=== PATIENT | female | born 1940 | race Caucasian/White ===

== ENCOUNTER 2017-06-25 08:55 | Day surgery (SDC) | payer MEDICARE, OTHER, SELFPAY ==
[2017-06-25] VITALS (8 sets, daily range): BP systolic 127–146; BP diastolic 67–83; PULSE 76–89; RESP 16–18; TEMP 36.3–37.4; O2SAT 92–98; BMI 40.7
[2017-06-25] MEDS: Cefazolin 2 GM in 0.9% Normal Saline 100 ML IV (10:32)
--- NOTE | 2017-06-25 11:45 | PCM.IMDPSTOP ---
Immediate Post-Op Note Date of Procedure: 06/25/17 Primary Surgeon/Physician: Tabby Trevino dynamite shooter: NOT,DEFINED Pre-Operative Diagnosis: multiple myeloma, need for IV access for chemotherapy Post-Operative Diagnosis: same Surgery/Procedure Performed:: placement of permanent tunnelled catheter in the right subclavian vein with subcutaneous port Description of Surgical Findings:: could not advance wire in either left IJ or left subclavian vein Estimated Blood Loss: < 10 ml Specimen's removed: none Type of Anesthesia:: General ASA Class: ASA3 Severe Disease - Admit VTE Documentation VTE Present on Admission: Yes VTE Mechan Device Prophylaxis: SCD's
--- NOTE | 2017-06-25 11:49 | OP.PN_ITS ---
Immediate Post-Op Note Date of Procedure: 06/25/17 Primary Surgeon/Physician: Tabby Trevino compensator worker: NOT,DEFINED Pre-Operative Diagnosis: multiple myeloma, need for IV access for chemotherapy Post-Operative Diagnosis: same Surgery/Procedure Performed:: placement of permanent tunnelled catheter in the right subclavian vein with subcutaneous port Description of Surgical Findings:: could not advance wire in either left IJ or left subclavian vein Estimated Blood Loss: < 10 ml Specimen's removed: none Type of Anesthesia:: General ASA Class: ASA3 Severe Disease - Admit VTE Documentation VTE Present on Admission: Yes VTE Mechan Device Prophylaxis: SCD's
--- NOTE | 2017-06-25 11:49 | OP.PCM_ITS ---
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 She was then given IV conscious sedation for anesthesia. The patient?s upper chest and neck were then prepped with a surgical skin preparation and sterile surgical drapes were placed. After proper landmarks were ascertained, the skin at the upper left chest area was then infiltrated with local anesthetic. The patient was placed in the Trendelenberg position. A needle trocar was then inserted into the left subclavian vein and there was good aspiration of venous blood. A wire was then threaded into the needle trocar. However, it could not be advanced. This was visualized under fluoroscopy and it appeared that there was an obstruction not allowing the wire to advance. The needle trocar was then reinserted into the left subclavian vein. There was good aspiration of venous blood. The wire was then threaded into the trocar and once again, under visualization by fluoroscopy the wire could not be advanced beyond a certain point in the subclavian vein. Therefore, attempts to access the left internal jugular vein was done. The ultrasound device was used to identify the location of the IJ. Once this was done, the skin and subcutaneous tissue were infiltrated with local anesthetic. The needle trocar was then directed into the left IJ as noted via the US transducer. There was good aspiration of venous blood. The wire was then inserted into the needle and then noted via fluoroscopy to be in the left internal jugular vein. However, it could not be advanced into the innominate vein, there seemed to be an obstruction. Thus accessing the left sided veins was aborted. Pressure was applied to both sites. The right side was therefore approached next. A needle trocar was then inserted into the right subclavian vein and there was good aspiration of venous blood. A wire was then threaded into the needle trocar and this was visualized under fluoroscopy to ensure that the wire was in the right subclavian vein. It was noted to advance in the SVC. Once this was done, then the needle trocar was removed. A small skin najma was made with an 11 blade knife at the wire entrance site. The dilator with the introducer sheath attached was then placed over the wire into the right subclavian vein via the Seldinger technique and this was visualized under fluoroscopy. The dilator and sheath were in proper position as visualized by fluoroscopy. The wire and dilator were then removed. The catheter was then threaded into the introducer sheath and was positioned with its tip at the junction of the superior vena cava and the right atrium as visualized under fluoroscopy. The catheter was flushed with a heparin saline mixture prior to placement. A subcutaneous pocket was then created caudad to the catheter insertion site. A transverse skin incision was made after the skin and subcutaneous tissues were infiltrated with local anesthetic. Blunt dissection was then used to create a space large enough for placement of the subcutaneous port. Hemostasis was carefully controlled with electrocautery. The port was sutured to the subcutaneous fascia using vicryl suture at three sites. The catheter was then tunneled into the subcutaneous pocket. The excess catheter was transected. The catheter was then attached to the subcutaneous port using electronics instructor?s guidelines. The port was then placed in the subcutaneous pocket and the sutures were ligated. The subdermal incisional sites were reapproximated with interrupted vicryl suture. The skin was reapproximated with monocryl suture in a subcuticular fashion. Cavilon and steristrips were used for reinforcement of the skin closure and a sterile opsite dressing was applied. The patient tolerated the procedure well. Grafts/Implants Used: Lot [id number] [employer] PowerPort - Complications none noted - Admit VTE Documentation VTE Present on Admission: Yes VTE Mechan Device Prophylaxis: SCD's
--- NOTE | 2017-06-25 11:49 | RAD_ITS ---
STUDY: X-RAY CHEST REASON FOR EXAM: Female, 76 years old. Port placement. TECHNIQUE: Single AP portable view of the chest. COMPARISON: Comparison is made with prior study dated October 16, 2013. FINDINGS: A right-sided portacatheter is in place. The tip is at the junction of the superior vena cava and right atrium. EKG electrodes are seen. The lungs are clear and expanded. There is no demonstrated pleural abnormality. There is moderate cardiac enlargement. Normal mediastinum and neri. Normal visualized pulmonary arteries. There is atherosclerotic calcification of the aortic arch with tortuosity. There are diffuse degenerative changes of the visualized thoracic spine. Marked degenerative changes of the left glenohumeral joint. There is no demonstrated abnormality of the visualized soft tissue structures of the upper abdomen. RAD/CXR for Line Placement IMPRESSION: A right-sided jono catheter has been placed. The tip is at the junction of the superior vena cava and right atrium. Electronically Signed: Bakari Paniagua MD at 12:31 EST Tel [phone], Service support ,
--- NOTE | 2017-06-25 11:55 | PCM.DC.POR ---
Discharge Diet: No Restrictions Discharge Activity: Return to Normal Activity, May not drive while taking narcotic pain medications. Call your doctor if your incision/area has: Continuous Slow Oozing, Foul Smelling Discharge Additional Dressing/Incision Instructions:: Leave dressings in place. May get wet in shower. Do not soak - no tub baths/swimming Allergies/Adverse Reactions: Allergies diazepam [From Valium] Allergy (Verified 06/25/17 09:35) DELIRIUM lorazepam [From Ativan] Allergy (Verified 06/25/17 09:34) DELIRIUM SERAQUEL Allergy (Uncoded 06/25/17 09:35) DELIRIUM Medications to take at Discharge Acetaminophen [Tylenol] 650 mg PO Q4H PRN PRN 06/22/17 Acyclovir [Zovirax] 400 mg PO BID 06/22/17 Famotidine [Pepcid] 20 mg PO BID 06/22/17 Gabapentin [Neurontin] 300 mg PO QHS 06/22/17 Ondansetron [Zofran Odt] 8 mg PO Q8H PRN PRN 06/22/17 Oxycodone [Oxyir] 5 - 10 mg PO Q4H PRN PRN 06/22/17 Polyethylene Glycol 3350 [Miralax] 17 gm PO DAILY 06/22/17 Sennosides/Docusate Sodium [Senna Plus Tablet] 1 each PO BID 06/22/17 Oxycodone [Oxyir] 5 mg PO Q6H PRN PRN #10 tab 06/25/17 The following prescriptions were given: Oxycodone [Oxyir] 5 mg PO Q6H PRN PRN #10 tab PRN Reason: Mod-Severe Pain (-03/09) Primary Care Physician: Fredrick Vaughan MD [Primary Care Provider] - Please Follow Up With: Tabby Trevino MD - call When: to be seen in 1-2 weeks, please call for time and day, thank you
--- NOTE | 2017-06-25 12:45 | NURSING ---
applied o2 at 3l/nc
[2017-06-25] MEDS: oxyCODONE 5 MG Tablet PO (14:00)
== END 2017-06-25 14:38 | disposition home or self-care (01) ==
LOC: SDC 08:56 → AC 08:58
PROVIDERS: Family Provider Family Medicine; PCP Family Medicine; Visit Provider Surgery
PROC: (CPT 36571; principal; 2017-06-25 10:15)
DX: C90.00 Multiple myeloma not having achieved remission (principal); C90.10 Plasma cell leukemia not having achieved remission; Z45.2 Encounter for adjustment and management of vascular access device; Z87.891 Personal history of nicotine dependence; Z79.899 Other long term (current) drug therapy; M19.90 Unspecified osteoarthritis, unspecified site; I49.9 Cardiac arrhythmia, unspecified; E66.01 Morbid (severe) obesity due to excess calories; Z68.41 Body mass index [BMI] 40.0-44.9, adult; Z82.49 Family history of ischemic heart disease and other diseases of the circulatory system; Z80.3 Family history of malignant neoplasm of breast
CPT/HCPCS: 00532; 36571; 71045; 77001; J7120; C1788; J2405

== ENCOUNTER → 2017-07-09 11:05 | Outpatient (CLI) | payer MEDICARE, OTHER, SELFPAY ==
[2017-05-23 17:00] VITALS: BP 144/77
[2017-06-25 09:31] VITALS: BMI 40.7
[2017-06-25 13:09] VITALS: BP 137/83
--- NOTE | 2017-07-09 11:35 | ECHOD_ITS ---
Reason For Study: High risk meds, Hx of strep infection; r/o endocarditis Procedure This was a 2D Doppler, Color Flow transthoracic echocardiogram. Patient scanned upright due to back pain and inability to lay flat. The study was technically difficult. Exam performed in department. Left Ventricle Based upon the 2D echocardiograhic images obtained there appears to be grossly normal left ventricular size, wall motion, and systolic function. The estimated ejection fraction is 60 %. No evidence for diastolic dysfunction. Right Ventricle Normal RV size. Normal systolic function. Atria Normal left atrium. Normal right atrium. No doppler evidence for ASD. Mitral Valve There is no mitral annular calcification. Normal mitral valve. Mild (1+) mitral valve insufficiency. Tricuspid Valve Normal tricuspid valve. Trivial tricuspid valve insufficiency. Unable to estimate RV systolic pressure/pulmonary artery pressure due to technically difficult study. Aortic Valve Trisinus/trileaflet aortic valve. Mild diffuse aortic valve thickening. Mild focal aortic valve calcification. Pulmonic Valve The pulmonic valve is not well visualized. Great Vessels Normal sized aortic root. Pericardium/Pleural No pericardial effusion. MMode/2D Measurements & Calculations LVIDd: 3.7 cm IVSd: 1.3 cm Ao root diam: 3.6 cm LVIDs: 2.2 cm LVPWd: 1.1 cm LA dimension: 2.9 cm FS: 40.4 % LAV(MOD-bp): 33.1 ml LA A4 area: 14.5 cm2 RA A4 area: 10.5 cm2 LAV(MOD-bp) Indexed: 15.8 ml/m2 LAV(MOD-sp2): 31.9 ml LAV(MOD-sp4): 33.1 ml Doppler Measurements & Calculations MV E max david: 53.7 cm/sec Lat Peak E' David: 7.0 cm/sec Med Peak E' David: 4.4 cm/sec MV A max david: 86.9 cm/sec E/E' lat: 7.7 E/E' med: 12.2 MV E/A: 0.62 Ao V2 max: 177.6 cm/sec LV V1 max: 111.0 cm/sec PA V2 max: 75.7 cm/sec Ao max P.6 mmHg LV V1 max P.0 mmHg Ao V2 mean: 130.0 cm/sec LV V1 mean P.7 mmHg Ao mean P.4 mmHg LV V1 mean: 78.0 cm/sec Ao V2 VTI: 31.6 cm LV V1 VTI: 19.8 cm Interpretation Summary The study was technically difficult. Based upon the 2D echocardiograhic images obtained there appears to be grossly normal left ventricular size, wall motion, and systolic function. The estimated ejection fraction is 60 %. Mild (1+) mitral valve insufficiency. Trivial tricuspid valve insufficiency. Mild diffuse aortic valve thickening. Mild focal aortic valve calcification. Unable to estimate RV systolic pressure/pulmonary artery pressure due to technically difficult study. No evidence for diastolic dysfunction. Ordering Physician: Gio Minor Referring Physician: DOCTOR, OUT OF TOWN Performed By: Jessica Vieyra, YESSICA, RVT
== END ==
DX: C90.10 Plasma cell leukemia not having achieved remission (principal); D64.9 Anemia, unspecified; G62.9 Polyneuropathy, unspecified; M19.90 Unspecified osteoarthritis, unspecified site; E87.1 Hypo-osmolality and hyponatremia
CPT/HCPCS: 93306

== ENCOUNTER → 2017-08-10 09:30 | Outpatient (CLI) | payer MEDICARE, OTHER, SELFPAY ==
[2017-08-10] VITALS (7 sets, daily range): BP systolic 107–142; BP diastolic 62–82; PULSE 61–83; RESP 16–20; TEMP 35.7–36.9; O2SAT 96–100; BMI 41.0
== END ==
PROVIDERS: Visit Provider Internal Medicine Hematology & Oncology
DX: D61.818 Other pancytopenia (principal)
CPT/HCPCS: 36430; 86850; 86900; 86920; 86922; J7030; P9016; A4216

== ENCOUNTER → 2017-09-22 09:10 | Outpatient (CLI) | payer MEDICARE, OTHER, SELFPAY ==
[2017-09-22] VITALS (7 sets, daily range): BP systolic 103–132; BP diastolic 55–75; PULSE 65–95; RESP 16–18; TEMP 36.2–36.7; O2SAT 92–100; BMI 38.8
== END ==
PROVIDERS: Visit Provider Internal Medicine Hematology & Oncology
DX: Z51.89 Encounter for other specified aftercare (principal)
CPT/HCPCS: 36430; 86850; 86900; 86920; 86922; J7040; P9016; A4216

== ENCOUNTER → 2017-10-13 09:36 | Outpatient (CLI) | payer MEDICARE, OTHER, SELFPAY ==
[2017-10-13] VITALS (7 sets, daily range): BP systolic 116–139; BP diastolic 64–92; PULSE 60–74; RESP 16–18; TEMP 36.2–36.6; O2SAT 95–98; BMI 41.5
== END ==
PROVIDERS: Visit Provider Internal Medicine Hematology & Oncology
DX: Z51.89 Encounter for other specified aftercare (principal)
CPT/HCPCS: 36415; 36430; 36591; 86850; 86900; 86920; 86922; J7040; P9016; A4216

== ENCOUNTER → 2017-11-19 07:55 | Outpatient (CLI) | payer MEDICARE, OTHER, SELFPAY ==
[2017-11-19] VITALS (7 sets, daily range): BP systolic 110–142; BP diastolic 60–78; PULSE 65–86; RESP 16–18; TEMP 36.5–36.6; O2SAT 92–95; BMI 40.7
== END ==
PROVIDERS: Family Provider Family Medicine; PCP Family Medicine; Visit Provider Internal Medicine Hematology & Oncology
DX: D61.818 Other pancytopenia (principal); Z85.79 Personal history of other malignant neoplasms of lymphoid, hematopoietic and related tissues
CPT/HCPCS: 36430; 86850; 86900; 86920; J7040; P9040; A4216

== ENCOUNTER 2017-12-11 09:29 | Outpatient (CLI) | payer MEDICARE, OTHER, SELFPAY ==
[2017-12-11] VITALS (8 sets, daily range): BP systolic 125–145; BP diastolic 58–76; PULSE 64–72; RESP 16–20; TEMP 36.3–37.2; O2SAT 95–98
[2017-12-11] MEDS: 0.9% NaCl VAD Flush 10 ML IV ×2 (15:05→15:19)
== END 2017-12-11 15:31 | disposition home or self-care (01) ==
LOC: MEDOUTP 09:30 → PCU 09:34
PROVIDERS: Family Provider Family Medicine; PCP Family Medicine; Visit Provider Internal Medicine Hematology & Oncology
DX: Z51.89 Encounter for other specified aftercare (principal); D64.9 Anemia, unspecified
CPT/HCPCS: 36430; 86850; 86860; 86870; 86880; 86900; 86902; 86920; 86922; J7040; P9016; A4216

== ENCOUNTER 2018-01-08 09:00 | Outpatient (CLI) | payer MEDICARE, OTHER, SELFPAY ==
[2018-01-08 10:10] VITALS: BP 125/97; PULSE 67; RESP 16; TEMP 36.8; O2SAT 97
[2018-01-08 10:25] VITALS: BP 130/75; PULSE 67; RESP 16; TEMP 36.8; O2SAT 97
[2018-01-08 11:25] VITALS: BP 138/78; PULSE 67; RESP 16; TEMP 36.7; O2SAT 96
[2018-01-08 12:14] VITALS: BP 142/82; PULSE 70; RESP 16; TEMP 36.8; O2SAT 94
[2018-01-08] MEDS: 0.9% NaCl VAD Flush 10 ML IV (12:44)
--- NOTE | 2018-01-08 12:49 | NURSING ---
Right Chest port deaccessed at this time. Flushed with 10cc NS followed by Heparin as ordered. Watson needle removed without complication. Small bruise noted at port site. No active bleeding or hematoma noted. Patient states bruise is not new. 2x2 gauze and tape applied at patient request. Patient tolerated without complaint of discomfort
== END 2018-01-08 12:49 | disposition home or self-care (01) ==
LOC: PCUOUT 09:00 → PCU 09:02
PROVIDERS: Family Provider Family Medicine; PCP Family Medicine; Visit Provider Internal Medicine Hematology & Oncology
DX: D64.81 Anemia due to antineoplastic chemotherapy (principal)
CPT/HCPCS: 36430; 86850; 86870; 86900; 86902; 86920; 86921; 86922; J7040; P9016; A4216

== ENCOUNTER 2018-08-03 10:36 | Emergency (ER) | payer MEDICARE, OTHER, SELFPAY ==
--- NOTE | 2018-08-03 10:50 | RAD_ITS ---
STUDY: X-RAY - LEFT FEMUR REASON FOR STUDY: Proximal femur pain. TECHNIQUE: 2 view(s) of the femur. COMPARISON: Radiographs of the left knee 01/18/2014. FINDINGS: There is an osteolytic lesion in the mid femoral diaphysis measuring approximately 2.4 cm in length. There is a left total knee arthroplasty. Normal visualized soft tissue structure. 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 Electronically Signed: Colten Block MD at 12:46 EST Tel , Service support ,
[2018-08-03 11:13] VITALS: BP 140/75; PULSE 85; RESP 16; TEMP 37.1; O2SAT 97; BMI 46.2
[2018-08-03] MEDS: oxyCODONE 5 MG Tablet PO (12:00)
[2018-08-03 13:00] VITALS: BP 143/77; PULSE 85; RESP 16; O2SAT 96
--- NOTE | 2018-08-03 13:42 | ED.VISSUMM ---
- ER Visit Summary Date of Service: 08/03/18 Chief Complaint: Left thigh pain History of Present Illness: The patient is a 77 F presents to the emergency department left thigh pain. Patient has a history of multiple myeloma. She follows with Dr. Jose and is under active treatment. She has had a history of osteolytic lesions in her shoulder and neck in the past. States over the past 2 days, she has had increasing pain in her left thigh. States it hurts to bear weight. She is been using her walker and is having a difficult time getting around because of her pain. She had x-rays done in the office which were concerning for a distal osteolytic lesion of the femur which was not seen on her x-rays of the hip. She was sent over for further evaluation. Physical Examination: Vital signs reviewed General: Well-nourished, well-developed Head: Normocephalic, atraumatic Eyes: Pupils equal and reactive, extraocular muscles intact Neck, supple, no lymphadenopathy Heart: Regular rate and rhythm Respiratory: No distress, clear bilaterally Abdomen: Soft, nontender, nondistended, no peritoneal signs Back: Nontender Extremities: Nontender, no edema, no cords Skin: Normal color no rash Neuro: Alert and oriented, no focal or lateralizing deficits Test Results: [] Emergency Department Course and Treatment: Patient presents emergency department thigh pain. She was given oral analgesics. I did obtain plain films of the femur. There does appear to be an osteolytic lesion within the femur, but no evidence of fracture. The patient was able to ambulate with control of her pain. I did discuss this with Dr. Jose who would actually refer the patient to the emergency department. He does have a history of osteolytic lesions secondary to multiple myeloma. His pain is controlled, I do feel that she is safe for outpatient follow-up. He is going to schedule her with radiation oncology tomorrow for palliative radiation. Family is comfortable with this plan of care. Treatment Plan: [] Disposition: Discharge Impression: Osteolytic lesion of the left femur This note was generated with [employer] dictation software. It may contain incorrect words, spelling, and punctuation that were not noted in review of the chart prior to signing ED Disposition - Plan for ED Patient: Instructions: ED Cyst Bone Prescriptions: RX: Oxycodone [Oxyir] 5 mg PO Q6H PRN PRN 3 Days #10 tab PRN Reason: Pain Referrals: Abhinav Jose DO [STAFF PHYSICIAN] - 1 Day
[2018-08-03 15:21] VITALS: BP 138/67; PULSE 87; RESP 20; O2SAT 97
== END 2018-08-03 15:22 | disposition home or self-care (01) ==
LOC: ED 12:18
PROVIDERS: Emergency Provider Emergency Medicine
DX: M89.552 Osteolysis, left thigh (principal); C90.00 Multiple myeloma not having achieved remission; E66.9 Obesity, unspecified; Z68.42 Body mass index [BMI] 45.0-49.9, adult; Z79.899 Other long term (current) drug therapy
CPT/HCPCS: 73552; 99283

== ENCOUNTER → 2018-11-14 08:36 | Outpatient (CLI) | payer MEDICARE, OTHER, SELFPAY ==
[2018-11-14] VITALS (7 sets, daily range): BP systolic 118–140; BP diastolic 60–80; PULSE 54–94; RESP 16–18; TEMP 35.9–36.6; O2SAT 93–100; BMI 43.2
== END ==
PROVIDERS: Referring Provider Internal Medicine Hematology & Oncology; Visit Provider Internal Medicine Hematology & Oncology
DX: D64.9 Anemia, unspecified (principal); C90.00 Multiple myeloma not having achieved remission
CPT/HCPCS: 36430; 86850; 86900; 86920; 86922; J7040; P9016; A4216

== ENCOUNTER → 2019-01-03 11:08 | Outpatient (CLI) | payer MEDICARE, OTHER, SELFPAY ==
[2018-11-14 08:49] VITALS: BMI 43.2
[2019-01-03 11:26] VITALS: BP 129/66; PULSE 69; RESP 16; TEMP 36.6; O2SAT 95; BMI 43.2
[2019-01-03 12:05] VITALS: BP 102/59; PULSE 81; RESP 18; TEMP 36; O2SAT 93
[2019-01-03 13:05] VITALS: BP 110/65; PULSE 103; RESP 16; TEMP 37; O2SAT 93
[2019-01-03 13:55] VITALS: BP 112/52; PULSE 83; RESP 16; TEMP 36.1; O2SAT 96
== END ==
PROVIDERS: Referring Provider Internal Medicine Hematology & Oncology; Visit Provider Internal Medicine Hematology & Oncology
DX: Z51.89 Encounter for other specified aftercare (principal); D64.9 Anemia, unspecified
CPT/HCPCS: 36430; 86850; 86870; 86900; 86902; 86920; 86921; J7040; P9016; A4216

== ENCOUNTER 2019-02-11 08:28 | Outpatient (CLI) | payer MEDICARE, OTHER, SELFPAY ==
[2019-01-03 11:26] VITALS: BMI 43.2
[2019-02-11] VITALS (8 sets, daily range): BP systolic 109–140; BP diastolic 56–81; PULSE 57–72; RESP 16–18; TEMP 36.1–36.8; O2SAT 92–97
[2019-02-11] MEDS: Acetaminophen 325 MG Tablet 650 MG PO (09:19)
[2019-02-11] MEDS: 0.9% NaCl VAD Flush IV ×2 (09:19→14:51)
== END 2019-02-11 15:00 | disposition home or self-care (01) ==
LOC: MEDOUTP 08:29 → MS3 08:34
PROVIDERS: Referring Provider Internal Medicine Hematology & Oncology; Visit Provider Internal Medicine Hematology & Oncology
DX: Z51.89 Encounter for other specified aftercare (principal); D64.9 Anemia, unspecified
CPT/HCPCS: 36430; 86850; 86900; 86901; 86902; J7040; P9016; A4216

== ENCOUNTER → 2019-03-14 09:32 | Outpatient (CLI) | payer MEDICARE, OTHER, SELFPAY ==
[2019-01-03 11:26] VITALS: BMI 43.2
[2019-03-14] VITALS (7 sets, daily range): BP systolic 113–143; BP diastolic 61–88; PULSE 70–81; RESP 16–18; TEMP 35.9–36.4; O2SAT 94–97; BMI 41.8
== END ==
PROVIDERS: Referring Provider Internal Medicine Hematology & Oncology; Visit Provider Internal Medicine Hematology & Oncology
DX: Z51.89 Encounter for other specified aftercare (principal); D64.9 Anemia, unspecified; C90.00 Multiple myeloma not having achieved remission
CPT/HCPCS: 36430; 86644; 86850; 86900; 86901; 86920; 86922; J7040; P9040; A4216

== ENCOUNTER → 2019-04-05 15:23 | Outpatient (CLI) | payer MEDICARE, OTHER, SELFPAY ==
[2019-03-14 09:39] VITALS: BMI 41.8
== END ==
PROVIDERS: Visit Provider Internal Medicine Hematology & Oncology
DX: R69 Illness, unspecified (principal)
CPT/HCPCS: 86850; 86900; 86901; 86920; 86922

== ENCOUNTER → 2019-04-07 08:16 | Outpatient (CLI) | payer MEDICARE, OTHER, SELFPAY ==
[2019-03-14 09:39] VITALS: BMI 41.8
[2019-04-07] VITALS (8 sets, daily range): BP systolic 120–143; BP diastolic 65–77; PULSE 66–75; RESP 16–18; TEMP 35.9–36.6; O2SAT 95–100; BMI 41.8
== END ==
PROVIDERS: Referring Provider Internal Medicine Hematology & Oncology; Visit Provider Internal Medicine Hematology & Oncology
DX: D64.9 Anemia, unspecified (principal)
CPT/HCPCS: 36430; 86850; 86900; 86901; 86920; 86922; J7040; P9016; A4216

== ENCOUNTER → 2019-06-01 11:40 | Outpatient (CLI) | payer MEDICARE, OTHER, SELFPAY ==
[2019-04-07 08:25] VITALS: BMI 41.8
[2019-06-01] VITALS (7 sets, daily range): BP systolic 114–152; BP diastolic 64–86; PULSE 66–79; RESP 16; TEMP 36.1–36.4; O2SAT 93–98; BMI 41.5
== END ==
PROVIDERS: Referring Provider Internal Medicine Hematology & Oncology; Visit Provider Internal Medicine Hematology & Oncology
DX: Z51.89 Encounter for other specified aftercare (principal); D61.810 Antineoplastic chemotherapy induced pancytopenia; D64.9 Anemia, unspecified; C90.00 Multiple myeloma not having achieved remission
CPT/HCPCS: 36430; 86850; 86900; 86901; 86902; 86920; 86922; J7040; P9040; A4216

== ENCOUNTER 2020-07-24 07:59 | Outpatient (CLI) | payer MEDICARE, OTHER, SELFPAY ==
[2019-06-01 12:07] VITALS: BMI 41.5
[2020-07-24] VITALS (7 sets, daily range): BP systolic 98–131; BP diastolic 50–65; PULSE 60–85; RESP 16; TEMP 36.5–37.2; O2SAT 95–98; BMI 41.5
[2020-07-24] MEDS: 0.9% NaCl VAD Flush IV ×2 (08:25→13:32)
[2020-07-24] MEDS: Furosemide 20 MG/2 ML VIAL IV (10:43)
== END 2020-07-24 16:34 | disposition home or self-care (01) ==
LOC: MEDOUTP 08:00
PROVIDERS: Referring Provider Internal Medicine Hematology & Oncology; Visit Provider Internal Medicine Hematology & Oncology
DX: C90.00 Multiple myeloma not having achieved remission (principal)
CPT/HCPCS: 36430; 86850; 86900; 86901; 86902; 86920; 86922; J7040; P9016; A4216; J1940

== ENCOUNTER 2020-08-21 08:41 | Outpatient (CLI) | payer MEDICARE, OTHER, SELFPAY ==
[2020-07-24 08:09] VITALS: BMI 41.5
[2020-08-21] MEDS: 0.9% NaCl VAD Flush IV ×2 (08:56→11:39)
[2020-08-21 09:05] VITALS: BP 146/84; PULSE 71; RESP 18; TEMP 36.5; O2SAT 98
[2020-08-21 09:12] VITALS: BMI 41.5
[2020-08-21 09:25] VITALS: BP 147/77; PULSE 71; RESP 18; TEMP 36.5; O2SAT 95
[2020-08-21 11:14] VITALS: BP 148/76; PULSE 59; RESP 18; TEMP 36.2; O2SAT 97
== END 2020-08-21 14:00 | disposition home or self-care (01) ==
LOC: MEDOUTP 08:41
PROVIDERS: Referring Provider Internal Medicine Hematology & Oncology; Visit Provider Internal Medicine Hematology & Oncology
DX: D64.81 Anemia due to antineoplastic chemotherapy (principal)
CPT/HCPCS: 36430; 86850; 86900; 86901; 86920; 86921; 86922; J7040; P9016; A4216

== ENCOUNTER 2020-08-23 10:17 | Emergency (ER) | payer MEDICARE, OTHER, SELFPAY ==
[2020-08-23 10:19] VITALS: BP 186/103; PULSE 86; RESP 24; TEMP 36.6; O2SAT 94; BMI 40.1
--- NOTE | 2020-08-23 10:42 | EKG12_ITS ---
Test Reason : SOB Blood Pressure : / mmHG Vent. Rate : 071 BPM Atrial Rate : 071 BPM P-R Int : 178 ms QRS Dur : 106 ms QT Int : 416 ms P-R-T Axes : 000 -39 -18 degrees QTc Int : 452 ms Normal sinus rhythm Left axis deviation Moderate voltage criteria for LVH, may be normal variant Abnormal ECG Confirmed by KISHORE REGAN, EMY ([id number]), film or videotape editor HIPOLITO NUÑEZ ([id number]) on 08/26/2020 1:47:03 PM Referred By: SHANDRA Confirmed By:EMY NOVAK MD
--- NOTE | 2020-08-23 10:45 | ED.VISSUMM ---
- ER Visit Summary Date of Service: 08/23/20 Chief Complaint: Shortness of breath History of Present Illness: The patient is a [address] Darrin Coombs and Dr. Jose. She reports that she has shortness of breath began 2 days ago. Severe when she walks around. It is mild at rest. She denies any chest pain. No fever, chills, or cough. Patient reports that she is short of breath when she lays flat, but this has been a longstanding problem and is unchanged. She reports that she sleeps in a recliner. Patient has a history of multiple myeloma and got 1 unit of packed red blood cells 2 days ago. She states it seems things have actually worsened since then. She takes 40 mg grams of Lasix 1 day and alternates this with 20 mg of Lasix a day. She took 40 mg of Lasix 1 hour ago. Patient denies any cardiac history. She does report she got an echo approximately 3 months ago that shows a calcified aortic aortic valve and has an appointment to see a mechanical maintenance instructor at [facility] in October. Denies any personal family history of coronary artery disease. No personal family history of DVT. No calf pain. Physical Examination: Vitals: Stable. Afebrile. General: Well-nourished and well-developed. Head: Normocephalic atraumatic. Neck: Supple, no lymphadenopathy. No JVD. Nontender. Cardiovascular: Regular rate and rhythm. 3 out of 6 systolic murmur consistent with aortic stenosis. Respiratory: No respiratory distress. Minimal crackles at the right base only, clear to auscultation otherwise. Abdominal: Soft, nontender, nondistended, normal bowel sounds. No guarding, rebound, or peritoneal signs. Back: Nontender. Extremities: Nontender, 3+ pitting edema lower extremities bilaterally. Skin: Normal color, no rash. Neurologic: Alert and oriented ?3. Cranial nerves II through XII are intact. Normal strength and sensation. Psych: Normal affect. Test Results: KG is sinus at 71 and unchanged from 2017. Troponin is negative. BNP is 518. There is no old for comparison. Urinalysis is negative. Chem-7 shows a BUN of 36. CBC shows an H&H of 8.9 and 27.8, platelets 134, stable neutrophils 83, monocytes of 11, lymphocytes of 5. Clinical Impression(s) from Imaging Studies Chest X-Ray 08/23/20 11:18 IMPRESSION: Mild degree of vascular congestion. Electronically Signed: Bakari Paniagua MD at 11:48 EDT , Service support , Emergency Department Course and Treatment: Patient had an IV placed. She is been able to ambulate to the bathroom without any difficulty. She is resting comfortably. She feels well and would like to go home. Treatment Plan: Patient took 40 mg of Lasix p.o. just prior to coming emergency department. She is urinated multiple times while here. She will be discharged instructions to take another 40 mg this afternoon. Then increase her daily dose from alternating between 20 and 40 every other day to 40 mg a day for the next 4 days until she sees Dr. Jose. Return to the emergency department for any worsening symptoms. Disposition: To home in improved and stable condition. Impression: 1. Volume overload. 2. Anemia. 3. Thrombocytopenia. 4. History of multiple myeloma. This note was generated with [employer] dictation software. It may contain incorrect words, spelling, and punctuation that were not noted in review of the chart prior to signing ED Disposition - Plan for ED Patient: Instructions: ED Heart Failure, Congestive (CHF) Referrals: Abhinav Jose DO [STAFF PHYSICIAN] - Keep Ricky appointment Additional Instructions: Take an extra 40 mg of Lasix at 3:00 this afternoon. Then increase your daily dose of Lasix to 40 mg each day until you see Dr. Jose.
[2020-08-23 11:02] LABS: Bacteria 0 SEEN /hpf (None Seen); Mucous, Urine 0 SEEN /hpf (<or=2+); Red Blood Cells-Urine 0 SEEN /hpf (0-5)
[2020-08-23 11:03] LABS: Color, Urine Straw (Yellow); Glucose, Dipstick Normal (Normal); Ketone-Dipstick Negative (Negative); Leukocyte Esterase-Dipstick 25 /ul (Negative); Nitrite-Dipstick Negative (Negative); Occult Blood-Urine Negative /ul (Negative); Protein-Dipstick 15 mg/dl (Negative); Specific Gravity, Urine 1.005 (1.002-1.030); Urine Bilirubin Dipstick Negative (Negative); Urine Clarity Sl. Cloudy (Clear); Urine Urobilinogen Normal (Normal)
[2020-08-23 11:09] LABS: Squamous Epithelial Cells - UA 0-5 SEEN /hpf (5-10); White Blood Cells 0-5 SEEN /hpf (0-5)
--- NOTE | 2020-08-23 11:18 | RAD_ITS ---
STUDY: X-RAY CHEST REASON FOR EXAM: Female, 79 years old. SOB TECHNIQUE: Single AP portable view of the chest. COMPARISON: Comparison is made with prior study dated 02/23/2018. FINDINGS: A right-sided portacatheter is seen with the tip at the junction of the superior vena cava and right atrium. EKG electrodes are seen. Mild degree of vascular congestion. There is no demonstrated pleural abnormality. There is mild cardiac enlargement. Normal mediastinum and neri. Normal visualized pulmonary arteries. There is atherosclerotic calcification of the aortic arch with tortuosity. There are diffuse degenerative changes of the visualized thoracic spine. There is degenerative osteoarthritis of the bilateral shoulders. There is no demonstrated abnormality of the visualized soft tissue structures of the upper abdomen. RAD/Chest 1 View (Portable) IMPRESSION: Mild degree of vascular congestion. Electronically Signed: Bakari Paniagua MD at 11:48 EDT , Service support ,
[2020-08-23 11:24] LABS: Absolute Neutrophil Count 3.7 X10^3/uL (2.0-7.7); Basophil# 0.01 X10^3/uL; Basophil% 0.2 % (0-1); Eosinophil# 0.03 X10^3/uL; Eosinophils% 0.7 % (0-5); Hematocrit 27.8 % (37-47); Hemoglobin 8.9 g/dL (12.0-15.0); Lymphocyte % 4.5 % (19-41); Mean Corpuscular Hgb 33.2 pg (27.0-32.0); Mean Corpuscular Volume 103.7 fL (81-99); Mean Platelet Vol. 9.1 fl (6.2-12.0); Monocyte# 0.47 X10^3/uL; Monocyte% 10.6 % (0-10); NRBC Flagged by Analyzer 0 % (0-5); Neutrophil # 3.68 X10^3/uL (2.7-7.7); Neutrophil % 82.7 % (47-70); POSITIVE DIFFERENTIAL YES; Platelet Count 134 K/mm3 (150-450); RBC Distribution Width CV 16.5 % (11.6-14.6); Red Blood Count 2.68 M/mm3 (4.2-5.4); White Blood Count 4.5 K/mm3 (4.4-11.0)
[2020-08-23 11:25] LABS: Differential Indicated SCAN CRITERIA MET
[2020-08-23 11:43] LABS: Anion Gap 8 (5-15); BUN 36 mg/dL (7-18); BUN/Creat Ratio 36.4 RATIO (10-20); Calcium,Total 8.6 mg/dL (8.5-10.1); Chloride 107 mmol/L (98-107); Creatinine, Serum 0.99 mg/dL (0.55-1.02); EST Glomerular Filtration Rate 57 mL/min (>60); Est Glom Filt Rate - Afr Amer 69 mL/min (>60); Estimated Creatinine Clearance 40.78 ml/min; Glucose 87 mg/dL (74-106); Potassium 4.3 mmol/L (3.5-5.1); Sodium Level 141 mmol/L (136-145)
[2020-08-23 12:37] VITALS: BP 151/84
== END 2020-08-23 12:46 | disposition home or self-care (01) ==
LOC: ED 11:50
PROVIDERS: Emergency Provider Emergency Medicine; PCP Family Medicine
DX: E87.70 Fluid overload, unspecified (principal); D64.9 Anemia, unspecified; D69.6 Thrombocytopenia, unspecified
CPT/HCPCS: 71045; 80048; 81001; 83880; 84484; 85025; 93005; 99283; A4216

== ENCOUNTER 2020-09-14 10:24 | Outpatient (CLI) | payer MEDICARE, OTHER, SELFPAY ==
[2020-09-14 11:28] VITALS: BP 108/55; PULSE 80; RESP 18; TEMP 37.1; O2SAT 97
[2020-09-14 11:43] VITALS: BP 121/63; PULSE 80; RESP 18; TEMP 37.1; O2SAT 97
[2020-09-14 12:43] VITALS: BP 109/60; PULSE 77; RESP 18; TEMP 36.5; O2SAT 97
[2020-09-14 13:43] VITALS: BP 110/53; PULSE 68; RESP 18; TEMP 36.8; O2SAT 97
[2020-09-14] MEDS: 0.9% Saline Lock 10 ML Syringe IV (14:12)
== END 2020-09-14 14:15 | disposition home or self-care (01) ==
LOC: MEDOUTP 10:25 → MS3 10:25
PROVIDERS: PCP Family Medicine; Referring Provider Internal Medicine Hematology & Oncology; Visit Provider Internal Medicine Hematology & Oncology
DX: C90.00 Multiple myeloma not having achieved remission (principal)
CPT/HCPCS: 36430; 86850; 86900; 86901; 86902; 86920; 86922; J7040; P9016; A4216

== ENCOUNTER → 2020-10-16 08:25 | Outpatient (CLI) | payer MEDICARE, OTHER, SELFPAY ==
[2020-10-16] VITALS (7 sets, daily range): BP systolic 98–118; BP diastolic 55–66; PULSE 68–87; RESP 16–18; TEMP 36.2–36.9; O2SAT 92–98; BMI 40.6
[2020-10-16] MEDS: 0.9% NaCl Peripheral Flush Adult/Peds IV ×2 (08:45→13:44)
[2020-10-16] MEDS: Furosemide 20 MG/2 ML VIAL IV (11:08)
== END ==
PROVIDERS: PCP Family Medicine; Referring Provider Internal Medicine Hematology & Oncology; Visit Provider Internal Medicine Hematology & Oncology
DX: D64.9 Anemia, unspecified (principal)
CPT/HCPCS: 36430; 86850; 86900; 86901; 86920; 86922; J7040; P9016; A4216; J1940

== ENCOUNTER → 2020-10-25 09:23 | Outpatient (CLI) | payer MEDICARE, OTHER, SELFPAY ==
[2020-10-16 08:37] VITALS: BMI 40.6
[2020-10-25] VITALS (8 sets, daily range): BP systolic 95–135; BP diastolic 50–68; PULSE 68–75; RESP 16–18; TEMP 36.1–36.7; O2SAT 93–97; BMI 40.6
[2020-10-25] MEDS: 0.9% NaCl Peripheral Flush Adult/Peds IV ×2 (09:48→14:33)
[2020-10-25] MEDS: Furosemide 20 MG/2 ML VIAL IV (12:10)
== END ==
PROVIDERS: PCP Family Medicine; Referring Provider Internal Medicine Hematology & Oncology; Visit Provider Internal Medicine Hematology & Oncology
DX: C90.00 Multiple myeloma not having achieved remission (principal); D64.9 Anemia, unspecified
CPT/HCPCS: 36430; 86850; 86900; 86901; 86902; 86920; 86922; J7040; P9016; A4216; J1940

== ENCOUNTER → 2020-11-08 07:58 | Outpatient (CLI) | payer MEDICARE, OTHER, SELFPAY ==
[2020-10-25 09:45] VITALS: BMI 40.6
[2020-11-08 08:12] VITALS: BMI 40.6
[2020-11-08] MEDS: 0.9% NaCl VAD Flush IV ×2 (08:15→13:09)
[2020-11-08 08:49] VITALS: BP 117/58; PULSE 65; RESP 16; TEMP 36.6; O2SAT 96
[2020-11-08 09:43] VITALS: BP 124/60; PULSE 65; RESP 16; TEMP 36.3; O2SAT 96
[2020-11-08 10:24] VITALS: BP 116/58; PULSE 59; RESP 16; TEMP 36.2; O2SAT 96
[2020-11-08] MEDS: Furosemide 20 MG/2 ML VIAL IV (10:27)
[2020-11-08 11:07] VITALS: BP 116/68; PULSE 59; RESP 16; TEMP 36.3; O2SAT 95
[2020-11-08 12:01] VITALS: BP 117/57; PULSE 61; RESP 16; TEMP 36.2; O2SAT 94
[2020-11-08 13:06] VITALS: BP 110/51; PULSE 97; RESP 16; TEMP 36.5; O2SAT 96
== END ==
PROVIDERS: PCP Family Medicine; Referring Provider Internal Medicine Hematology & Oncology; Visit Provider Internal Medicine Hematology & Oncology
DX: D64.81 Anemia due to antineoplastic chemotherapy (principal)
CPT/HCPCS: 36430; 86850; 86900; 86901; 86902; 86920; 86922; J7040; J7050; P9016; A4216; J1940

== ENCOUNTER → 2020-12-20 08:11 | Outpatient (CLI) | payer MEDICARE, OTHER, SELFPAY ==
[2020-11-08 08:12] VITALS: BMI 40.6
[2020-12-20] VITALS (7 sets, daily range): BP systolic 103–125; BP diastolic 41–61; PULSE 80–94; RESP 16–18; TEMP 36.4–36.7; O2SAT 95–98; BMI 40.6
[2020-12-20] MEDS: 0.9% NaCl VAD Flush IV ×2 (08:22→13:12)
[2020-12-20] MEDS: Furosemide 20 MG/2 ML VIAL IV (10:43)
== END ==
PROVIDERS: PCP Family Medicine; Referring Provider Internal Medicine Hematology & Oncology; Visit Provider Internal Medicine Hematology & Oncology
DX: D64.81 Anemia due to antineoplastic chemotherapy (principal)
CPT/HCPCS: 36430; 86644; 86850; 86900; 86901; 86902; 86920; 86922; J7040; P9016; A4216; J1940

== ENCOUNTER → 2021-01-03 09:04 | Outpatient (CLI) | payer MEDICARE, OTHER, SELFPAY ==
[2020-12-20 08:25] VITALS: BMI 40.6
[2021-01-03] VITALS (7 sets, daily range): BP systolic 99–119; BP diastolic 49–68; PULSE 68–95; RESP 16; TEMP 36.7–37.2; O2SAT 94–98; BMI 40.6
[2021-01-03] MEDS: Furosemide 20 MG/2 ML VIAL IV (12:08)
== END ==
PROVIDERS: PCP Family Medicine; Referring Provider Internal Medicine Hematology & Oncology; Visit Provider Internal Medicine Hematology & Oncology
DX: C90.00 Multiple myeloma not having achieved remission (principal); D64.81 Anemia due to antineoplastic chemotherapy
CPT/HCPCS: 36430; 86850; 86900; 86901; 86902; 86920; 86922; J7040; P9016; A4216; J1940

== ENCOUNTER → 2021-01-31 09:04 | Outpatient (CLI) | payer MEDICARE, OTHER, SELFPAY ==
[2021-01-31 09:16] VITALS: BP 156/68; PULSE 77; RESP 16; TEMP 36.2; O2SAT 98
[2021-01-31 09:48] VITALS: BP 136/59; PULSE 72; RESP 16; TEMP 36.2; O2SAT 98
[2021-01-31 10:48] VITALS: BP 144/66; PULSE 65; RESP 16; TEMP 36.4; O2SAT 98
[2021-01-31] MEDS: 0.9% NaCl Peripheral Flush Adult/Peds IV ×2 (11:00→12:43)
[2021-01-31 11:29] VITALS: BP 140/67; PULSE 59; RESP 16; TEMP 36.6; O2SAT 99
[2021-01-31] MEDS: Furosemide 20 MG/2 ML VIAL IV (11:49)
== END ==
PROVIDERS: PCP Family Medicine; Referring Provider Internal Medicine Hematology & Oncology; Visit Provider Internal Medicine Hematology & Oncology
DX: D64.9 Anemia, unspecified (principal); C90.00 Multiple myeloma not having achieved remission
CPT/HCPCS: 36430; 86850; 86900; 86901; 86902; 86920; 86922; J7040; P9016; A4216; J1940

== ENCOUNTER 2021-03-03 10:58 | Day surgery (SDC) | payer MEDICARE, OTHER, SELFPAY ==
[2021-03-03] VITALS (7 sets, daily range): BP systolic 96–131; BP diastolic 51–70; PULSE 68–87; RESP 16; TEMP 36.1–36.5; O2SAT 94–99; BMI 40.7
--- NOTE | 2021-03-03 11:23 | PCM.HP.BLA ---
History and Physical Date of Admission: 03/03/21 Cortney Tyler is a 80 year old female who is scheduled at the request of Abhinav Jose for repeat EGD s/p GI bleed.. My final recommendations will be communicated back to the requesting physician by the way of the shared medical record, fax, or via US Mail ? HISTORY OF PRESENT ILLNESS Cortney Tyler is a 80 year old female with a past medical history significant for multiple myeloma, hyperlipidemia, diastolic heart failure, anemia requiring periodic blood transfusions, severe aortic stenosis status post TAVR 10/17/2020 . Recent ER visit 12/23/2020 normal Hgb 5.5 Hct 4.3, black tarry stools s/p EGD which showed actively bleeding duodenal bulb lesion s/p epi injection ? Who presents today for an evaluation of follow up EGD post GI bleed 12/23/2020. ? The patient was seen by on 12/23/2020 for upper endoscopy for symptoms of GI bleed. ?The procedures were performed with MAC sedation. The procedure report has been reviewed and findings as follows: ? Upper GI bleed?- s/p EGD which showed actively bleeding duodenal bulb lesion s/p epi injection, gold probe cautery and hemoclip. Hgb low but stable. Stool brown per patient - Monitor Hgb/Hct - transfuse as needed - Monitor and document all episodes of GI bleeding - Diet as tolerated - Continue Protonix?40 mg twice daily for 4 weeks and then decrease to daily.? - Plavix on hold per primary team - OK for?to resume low dose Aspirin on 01/02 per GI - Avoid NSAIDS - Will need follow up with GI for repeat EGD in 2-3 months to assess for healing.?Follow up with Dr. Huerta/Coleen/Lauren/Fiona at discharge. Call [phone] for appointment? ? ? The patient denies change in bowel habits, denies blood or black stool or abdominal pain. Having a solid bowel movement daily. Patient reports it's been 5 weeks since having diarrhea. She associates when stopping the ferrous sulfate the diarrhea has resolved. Reports having diarrhea prior for 3 years thought this was from chemo. ? ? Patient reports she had colonoscopy 8 years ago by . States this was clean. Patient signed medical release for medical records. Denies upper GI complaints, such As heartburn, regurgitation, dysphagia or abdominal pain. ? Currently taking pantoprazole 40mg once daily ? PRIOR TEST RESULTS Imaging/Procedures: ? Component Latest Ref Rng & Units 01/02/2021 01/09/2021 01/14/2021 WBC 3.70 - 11.00 k/uL ? 3.17 (L) 3.90 RBC 3.90 - 5.20 m/uL ? 2.77 (L) 2.96 (L) Hemoglobin 11.5 - 15.5 g/dL ? 8.8 (L) 9.2 (L) Hematocrit 36.0 - 46.0 % ? 27.1 (L) 28.6 (L) MCV 80.0 - 100.0 fL ? 97.8 96.6 MCH 26.0 - 34.0 pG ? 31.8 31.1 MCHC 30.5 - 36.0 g/dL ? 32.5 32.2 RDW-CV 11.5 - 15.0 % ? 17.7 (H) 17.3 (H) Platelet Count 150 - 400 k/uL ? 118 (L) 112 (L) MPV 9.0 - 12.7 fL ? 9.5 10.2 Neut% % ? 72.6 81.0 Abs Neut (ANC) 1.45 - 7.50 k/uL ? 2.30 3.16 Lymph% % ? 8.5 4.0 Abs Lymph 1.00 - 4.00 k/uL ? 0.27 (L) 0.16 (L) [place]% % ? 12.0 8.0 Abs [place] <0.87 k/uL ? 0.38 0.31 Eosin% % ? 6.0 1.0 Abs Eosin <0.46 k/uL ? 0.19 0.04 Baso% % ? 0.9 1.0 Abs Baso <0.11 k/uL ? 0.03 0.04 ANC(includeSEG+BAND) k/uL ? ? 3.16 [place]% % ? ? 1.0 Myelo% % ? ? 4.0 Anisocytosis ? ? ? Present Left Shift ? ? ? Present Ovalocytes ? ? ? Few Polychromasia ? ? ? Slight RBC Fragments ? ? ? Few Tear Drop ? ? ? Few Platelet Estimate ? ? ? Platelet estimate decreased Diff Type ? ? Auto Diff Manual Diff Nucleated Reds 0 /100 WBC ? 0.0 ? Absolute nRBC <0.01 k/uL ? <0.01 ? Glucose 74 - 99 mg/dL ? ? 88 BUN 7 - 21 mg/dL ? ? 26 (H) Creatinine 0.58 - 0.96 mg/dL ? ? 1.03 (H) Sodium 136 - 144 mmol/L ? ? 137 Potassium 3.7 - 5.1 mmol/L ? ? 4.0 Chloride 97 - 105 mmol/L ? ? 101 CO2 22 - 30 mmol/L ? ? 28 Anion Gap 9 - 18 mmol/L ? ? 8 (L) Calcium 8.5 - 10.2 mg/dL ? ? 9.1 eGFR- ? ? ? >60 eGFR-All Other Races . ? ? 51 Iron 41 - 186 ug/dL 54 77 ? TIBC 232 - 386 ug/dL 228 (L) 289 ? Transferrin Saturation 15 - 57 % 24 27 ? Retic % 0.4 - 2.0 % ? 2.2 (H) ? Abs Retic 0.0180 - 0.1000 M/uL ? 0.060 ? Ferritin 14.7 - 205.1 ng/mL 1,558.0 (H) 1,833.0 (H) ? Vitamin B12 232 - 1,245 pg/mL ? 901 ? ? ? REVIEW OF SYSTEMS: GENERAL: No weight loss, malaise or fevers, will have hot flash after chemo treatments and then goes away HEENT: Negative for frequent or significant headaches, No changes in hearing or vision, no nose bleeds or other nasal problems NECK: Negative for lumps, goiter, pain and significant neck swelling RESPIRATORY: Negative for cough, hemoptysis, wheezing, COPD, dyspnea or shortness of breath, does have SOB when laying down but this is not new CARDIOVASCULAR: See HPI, patient has JENNY hose on and states swelling has improved GI: See HPI : No history of dysuria, frequency or incontinence MUSCULOSKELETAL: back pain has a history of multiple myeloma takes tramadol SKIN: Negative for lesions, rash, and itching PSYCH: Negative for sleep disturbance, mood disorder and recent psychosocial stressors. HEMATOLOGY/LYMPHOLOGY easy bruising ENDOCRINE: has noticed she gets cold which is not new NEURO: No history of headaches, syncope, paralysis, seizures or tremors All other reviewed and negative other than HPI. PAST MEDICAL HISTORY PAST MEDICAL HISTORY Diagnosis Date ? Aortic valve stenosis ? ? Diastolic heart failure (HCC) ? ? Multiple myeloma (HCC) ? ? leukemia ? Osteoarthritis, multiple sites ? ? Plasma cell leukemia (HCC) ? ? Pneumonia ? ? x 2 ? PAST SURGICAL HISTORY PAST SURGICAL HISTORY Procedure Laterality Date ? COLONOSCOPY GEN ANES ? 2015 ? LEFT HEART CATH,PERCUTANEOUS ? 09/18/2020 ? PAST SURGICAL HISTORY OF Bilateral ? ? carpal tunnel release ? PAST SURGICAL HISTORY OF ? ? ? tubal ligation ? PICC LINE INSERT/CONSULT ? 05/28/2017 ? ? REMV CATARACT EXTRACAP,INSERT LENS Bilateral 2019 ? TAVR AORTIC VALVE CAROTID ARTERY APPROACH ? 10/17/2020 ? TOTAL KNEE REPLACEMENT Bilateral ? ? CURRENT MEDICATIONS Current Outpatient Medications Medication Sig Dispense Refill ? dextromethorphan/pseudoephed (ROBITUSSIN COUGH & COLD ORAL) Take 10 mL by mouth as needed. ? ? ? aspirin, enteric coated (ECOTRIN LOW STRENGTH) 81 mg EC tablet Take 1 tablet by mouth once daily. 30 tablet 0 ? pantoprazole DR (PROTONIX) 40 mg tablet Take 1 tablet by mouth twice daily before meals (0600/1600). 60 tablet 1 ? furosemide (LASIX) 40 mg tablet Take 1 tablet by mouth twice daily. 60 tablet 5 ? acyclovir (ZOVIRAX) 400 mg tablet TAKE 1 TABLET BY MOUTH TWICE A DAY 180 tablet 1 ? bismuth subsalicylate (PEPTO-BISMOL) 262 mg/15 mL suspension Take 15 mL by mouth every 6 hours as needed. ? ? ? carboxymethylcellulose (REFRESH TEARS) 0.5 % drop 1 Drop as needed. ? ? ? GARLIC OIL ORAL Take 1 capsule by mouth once daily. ? ? ? gabapentin (NEURONTIN) 300 mg capsule Take 1 capsule by mouth twice daily. 180 capsule 3 ? OTC PRODUCT Take 1 capsule by mouth once daily. Women's probiotic for urinary issues ? ? ? ARNICA TOPICAL Apply to affected area. ? ? ? TURMERIC ORAL Take 1 tablet by mouth twice daily. ? ? ? Cranberry 400 mg cap Take 1 capsule by mouth once daily. ? ? ? OTC NUTRITIONAL SUPPLEMENT once daily. Colostrum tablet ? ? ? DIETARY SUPPLEMENT ORAL Take 1 capsule by mouth once daily. Epic Pro 25 Strain Probiotic ? ? ? potassium chloride ER (K-DUR, KLOR-CON) 20 mEq tablet Take 1 tablet by mouth once daily. 30 tablet 5 ? Alpha Lipoic Acid 300 mg cap Take 1 capsule by mouth once daily. ? ? ? s-adenosylmethionine sul tosyl (DRU-E ORAL) Take 800 mg by mouth once daily. ? lactobacillus combo no.6 (PROBIOTIC COMPLEX ORAL) Take 1 tablet by mouth once daily. ? Wcowp-3-IWS-EPA-Fish Oil (FISH OIL) 1,000 mg (120 mg-180 mg) cap Take one capsule by mouth twice daily. ? calcium carbonate/vitamin D3 (CALCIUM 500 + D, D3, ORAL) Take 1 capsule by mouth twice daily. ? cholecalciferol, vitamin D3, (VITAMIN D3 ORAL) Take 1,000 Units by mouth once daily. ? Loperamide HCl (IMODIUM A-D) 2 mg tab Take 2 mg by mouth as needed. ? ? ? MAGNESIUM HYDROXIDE (MILK OF MAGNESIA ORAL) Take 30 mL by mouth as needed. ? ? ? acetaminophen (TYLENOL) 325 mg tablet Take 650 mg by mouth every 6 hours as needed (TAKING 325 MG ALONG WITH A 500 MG TABLET). po or suppository ? traMADol (ULTRAM) 50 mg tablet Take 1 tablet by mouth every 6 hours as needed for up to 30 days. 120 tablet 0 ? ferrous sulfate EC 324 mg (65 mg iron) TbEC Take 324 mg by mouth once daily. Taking every other day ? Current Facility-Administered Medications Medication Dose Route Frequency Provider Last Rate Last Admin ? perflutren lipid microspheres 1.3 mL in NaCl (PF) 0.9% 10 mL injection (DEFINITY) INTRAVENOUS DIRECTED PRN Jo Rodgers, ENVIRONMENTAL HEALTH NURSE.DATA COMMUNICATIONS ANALYST ? sodium chloride 0.9 % (flush) 10 mL (BD POSIFLUSH) 10 mL INTRAVENOUS DIRECTED PRN Jo Rodgers, ENVIRONMENTAL HEALTH NURSE.DATA COMMUNICATIONS ANALYST ? ? ALLERGIES ALLERGIES Allergen Reactions ? Lorazepam Mental Status Change ? Seroquel [Quetiapin* Mental Status Change ? Valium [Diazepam] Mental Status Change ? Tape [Adhesive Tape* Other: See Comments ? ? paper tape sensitivity/skin sensitivity ? ? SOCIAL HISTORY Social History ? Tobacco Use ? Smoking status: Former Smoker ? ? Packs/day: 1.00 ? ? Years: 6.00 ? ? Pack years: 6.00 ? ? Types: Cigarettes ? ? Start date: 05/23/1957 ? ? Quit date: 02/21/1963 ? ? Years since quittin.9 ? Smokeless tobacco: Never Used Vaping Use ? Vaping Use: Never used Substance Use Topics ? Alcohol use: No ? Drug use: No ? ? FAMILY HISTORY (grandparents, parents, brothers, sisters, aunts, or uncles) Ulcerative Colitis: No Crohn's Disease: No Colon Cancer: No Colon Polyps: No IBS: No Celiac disease: No ? PHYSICAL EXAMINATION BP 120/70 Pulse 75 Wt 234 lb (106.1kg) SpO2 96% ? General Appearance: Well appearing, alert, in no acute distress, well-hydrated, well nourished. Eyes: PERRLA, conjunctiva and sclera normal Oropharynx: Lips, tongue, and oral mucosa normal. There is no thrush or oral ulcers. Lungs:breath sounds clear to auscultation bilaterally, no crackles, rhonchi, or wheezes Heart: regular rate and rhythm, no murmurs or gallops. Abdomen: no palpable mass, no organomegaly, tenderness to deep palpation in the epigastrium Rectal exam: Deferred. Extremities: no cyanosis or edema Skin: no jaundice, no spider angiomas, no palmar erythema Neuro:alert, oriented x 3, pleasant and in no acute distress ? ? IMPRESSION (D64.9) Anemia, unspecified type (primary encounter diagnosis) ? ? PLAN Patient presents today for repeat EGD s/p GI bleed, duodenal ulcer in 12/23/2020. Patient denies any symptoms of black stool, rectal bleeding, abdominal tenderness, or upper GI complaints. It is recommended patient have a repeat EGD d/t bleeding duodenal ulcers. Plan for patient to EGD done with MAC sedation, has significant history of aortic stenosis chronic diastolic congestive heart failure and plasma cell leukemia. ? Plan is to follow up after test(s) and as needed (prn). ? I spent a total of 30 minutes on the date of the service which included preparing to see the patient, [id number] patient care, completing clinical documentation, obtaining and/or reviewing separately obtained history, performing a medically appropriate examination, counseling and educating the patient/family/caregiver and independently interpreting results (not separately reported). ? Lucia Villalpando, SHAMA.DATA COMMUNICATIONS ANALYST I have re-examined the patient. There are no clinical changes since date of exam.
[2021-03-03] MEDS: Lactated Ringers 1,000 ML 100 ML IV (11:44)
--- NOTE | 2021-03-03 12:00 | IMM_PTH ---
PATIENT: KELECHI HOBSON LOC: EN U#:[id number] AGE/SX: 80/F ROOM: RE03/03/[address]: Dr. Randy Fisher MD : 1940 BED: DIS: 03/03/2021 SPEC #: [id number] RECD: 03/04/21 12:22 STATUS: MORIAH REElaine #: [id number] CLARISA: 03/03/21 12:[address]: Randy Fisher DEPT: IMMUNOHISTOCHEMISTRY RECD BY: Shelley Elam ENTERED: 03/04/21 12:23 SP TYPE: IMMUNO OTHR DR: Dr. Fco Casper MD Tissues: Stomach, NOS Procedures: H Pylori (initial) PHYSICIAN & INSTITUTION [place] [id number] SPECIMEN INFORMATION: Tissue Source: Antrum biopsy Clinical Info: GI bleed, duodenal ulcer Specimen Number: [id number] CPT code: 99662 METHODOLOGY: Deparaffinized sections of prefer/formalin-fixed tissue or PAP/DQ stained slides are incubated with monoclonal/polyclonal antibodies/oligonucleotide probes. Localization is made via biotin free immunoperoxidase method. Appropriate controls are performed and reacted as expected. Results on target cell population are indicated in the following table: RESULTS: ANTIBODY / CLONE RESULT H Pylori (polyclonal) negative These tests were developed and their performance characteristics determined by [facility]. They may not have been cleared or approved by the U.S. Food and Drug Administration. The FDA has determined that such clearance or approval is not necessary. INTERPRETATION: Antrum biopsy: Negative for Helicobacter pylori organisms. AM:darleen 03/05/2021
--- NOTE | 2021-03-03 12:00 | GASB_PTH ---
PATIENT: KELECHI HOBSON LOC: EN U#:[id number] AGE/SX: 80/F ROOM: RE03/03/[address]: Dr. Randy Fisher MD : 1940 BED: DIS: 03/03/2021 SPEC #: [id number] RECD: 03/03/21 19:00 STATUS: MORIAH MAX #: [id number] CLARISA: 03/03/21 12:[address]: Randy Fisher DEPT: SURGICAL PATHOLOGY RECD BY: Ty Mena ENTERED: 03/04/21 10:12 SP TYPE: Gastric Bx OTHR DR: Dr. Fco Casper MD Tissues: Gastric mucous membrane Procedures: Surgery Specimen Level IV HEADER OPERATION: EGD ([facility]) PRE-OP DIAGNOSIS: GI bleed, duodenal ulcer TISSUE SUBMITTED: Antrum biopsy for histo and h. pylori MICROSCOPIC DIAGNOSIS Gastric antrum, biopsy: Mild chronic inflammation. AM:darleen 03/05/2021 COMMENT The results of immunohistochemistry for Helicobacter pylori will be reported separately ([id number]). MICROSCOPIC DESCRIPTION Slides are reviewed. GROSS DESCRIPTION Received in fixative is one container labeled with the patient's name and designated antrum biopsy. The specimen consists of multiple irregular fragments of light [place]on soft tissue that in aggregate measure 0.2 x 0.2 x 0.1 cm. The specimen is totally submitted in one cassette. / SJ:darleen 03/04/21 TC:3 CPT: 58829
--- NOTE | 2021-03-03 12:22 | OP.EGD_ITS ---
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 Refer to note in patient chart for documentation of history and physical. Complications: No immediate complications. Procedure: Pre-Anesthesia Assessment: - Prior to the procedure, a History and Physical was performed, and patient medications and allergies were reviewed. The patient's tolerance of previous anesthesia was also reviewed. The risks and benefits of the procedure and the sedation options and risks were discussed with the patient. All questions were answered, and informed consent was obtained. Prior Anticoagulants: The patient has taken no previous anticoagulant or antiplatelet agents. ASA Grade Assessment: III - A patient with severe systemic disease. After reviewing the risks and benefits, the patient was deemed in satisfactory condition to undergo the procedure. After obtaining informed consent, the endoscope was passed under direct vision. Throughout the procedure, the patient's blood pressure, pulse, and oxygen saturations were monitored continuously. The Endoscope was introduced through the mouth, and advanced to the second part of duodenum. The upper GI endoscopy was accomplished without difficulty. The patient tolerated the procedure well. Scope In: 12:13:17 PM Scope Out: 12:16:46 PM Total Procedure Duration Time 0 hours 3 minutes 29 seconds Findings: The Z-line was regular and was found 38 cm from the incisors. No biopsies or other specimens were collected for this exam. Localized minimal inflammation characterized by erythema was found in the prepyloric region of the stomach. Biopsies were taken with a cold forceps for Helicobacter pylori testing. The examined duodenum was normal. No biopsies or other specimens were collected for this exam. Impression: - Z-line regular, 38 cm from the incisors. No specimens collected. - Gastritis. Biopsied. - Normal examined duodenum. No specimens collected. Recommendation: - Discharge patient to home. - Resume previous diet. - Continue present medications. - Await pathology results. - Repeat upper endoscopy PRN for surveillance. - Return to nurse practitioner in 1 week. Procedure Code(s): --- Professional --- 96554, Esophagogastroduodenoscopy, flexible, transoral; with biopsy, single or multiple Diagnosis Code(s): --- Professional --- K29.70, Gastritis, unspecified, without bleeding D62, Acute posthemorrhagic anemia K26.4, Chronic or unspecified duodenal ulcer with hemorrhage CPT copyright 2017 [employer]. All rights reserved. The codes documented in this report are preliminary and upon keypuncher review may be revised to meet current compliance requirements. MD Randy Vela MD 03/03/2021 12:22:08 PM This report has been signed electronically. Number of Addenda: 0 Note Initiated On: 03/03/2021 12:07 PM
--- NOTE | 2021-03-03 12:23 | OP.CCLET_ITS ---
03/03/2021 Fco Casper [address] [place] [address] Re : Upper GI endoscopy procedure for Cortney Tyler Dear Dr. Casper This procedure was performed on Wednesday, March 03, 2021. My impressions and recommendations are as follows: Impressions : - Z-line regular, 38 cm from the incisors. No specimens collected. - Gastritis. Biopsied. - Normal examined duodenum. No specimens collected. Recommendations : - Discharge patient to home. - Resume previous diet. - Continue present medications. - Await pathology results. - Repeat upper endoscopy PRN for surveillance. - Return to nurse practitioner in 1 week. My findings are described in the full procedure note, which is enclosed. If I can be of further assistance, please feel free to contact me at Doctor phone number(s): , Work: . Sincerely, MD Randy Vela MD 03/03/2021 12:22:08 PM This report has been signed electronically.
== END 2021-03-03 13:14 ==
LOC: EN 11:02 → AC 11:02
PROVIDERS: PCP Family Medicine; Referring Provider Family Medicine; Visit Provider Surgery
PROC: 0DJ08ZZ Inspection of Upper Intestinal Tract, Via Natural or Artificial Opening Endoscopic (ICD-10-PCS; CPT 43235; principal; 2021-03-03 11:55)
DX: K29.50 Unspecified chronic gastritis without bleeding (principal); D62 Acute posthemorrhagic anemia; K26.4 Chronic or unspecified duodenal ulcer with hemorrhage; G47.30 Sleep apnea, unspecified; M19.90 Unspecified osteoarthritis, unspecified site; I50.32 Chronic diastolic (congestive) heart failure; Z79.82 Long term (current) use of aspirin; Z79.899 Other long term (current) drug therapy; Z87.891 Personal history of nicotine dependence; Z95.2 Presence of prosthetic heart valve
CPT/HCPCS: 43239; 88305; 88342; J7120; A4216

== ENCOUNTER → 2021-03-17 08:29 | Outpatient (CLI) | payer MEDICARE, OTHER, SELFPAY ==
[2021-03-17 08:44] VITALS: BP 118/57; PULSE 75; RESP 16; TEMP 36.6; O2SAT 97
[2021-03-17 09:08] VITALS: BP 122/73; PULSE 69; RESP 16; TEMP 36.5; O2SAT 97
[2021-03-17 10:08] VITALS: BP 136/59; PULSE 68; RESP 16; TEMP 36.6; O2SAT 97
[2021-03-17 10:56] VITALS: BP 134/53; PULSE 62; RESP 16; TEMP 36.6; O2SAT 98
[2021-03-17] MEDS: Furosemide 20 MG/2 ML VIAL IV (10:57)
== END ==
PROVIDERS: PCP Family Medicine; Referring Provider Internal Medicine Hematology & Oncology; Visit Provider Internal Medicine Hematology & Oncology
DX: D64.81 Anemia due to antineoplastic chemotherapy (principal)
CPT/HCPCS: 36430; 86850; 86900; 86901; 86902; 86920; 86922; J7040; P9016; J1940

== ENCOUNTER → 2021-04-08 08:30 | Outpatient (CLI) | payer MEDICARE, OTHER, SELFPAY ==
[2021-04-08] VITALS (7 sets, daily range): BP systolic 98–141; BP diastolic 48–61; PULSE 60–77; RESP 16–18; TEMP 36–36.4; O2SAT 96–98
[2021-04-08] MEDS: Furosemide 20 MG/2 ML VIAL IV (11:08)
[2021-04-08] MEDS: 0.9% NaCl VAD Flush IV (13:34)
== END ==
PROVIDERS: PCP Family Medicine; Referring Provider Internal Medicine Hematology & Oncology; Visit Provider Internal Medicine Hematology & Oncology
DX: D64.81 Anemia due to antineoplastic chemotherapy (principal)
CPT/HCPCS: 36430; 86850; 86900; 86901; 86902; 86920; 86922; J7040; P9016; A4216; J1940

== ENCOUNTER 2021-06-20 22:31 | Inpatient (IN) | payer MEDICARE, OTHER, SELFPAY ==
[2021-06-20 22:31] VITALS: BP 135/70; PULSE 79; RESP 24; TEMP 39.3; O2SAT 94; BMI 42.4
[2021-06-20 22:38] VITALS: BP 135/70; PULSE 79; RESP 20; TEMP 39.3; O2SAT 93
--- NOTE | 2021-06-20 22:50 | EKG12_ITS ---
Test Reason : DYSRHYTHMIA Blood Pressure : / mmHG Vent. Rate : 072 BPM Atrial Rate : 072 BPM P-R Int : 178 ms QRS Dur : 104 ms QT Int : 388 ms P-R-T Axes : -88 -30 004 degrees QTc Int : 424 ms Unusual P axis, possible ectopic atrial rhythm Left axis deviation Abnormal ECG Confirmed by EDITH REGAN, RAIMUNDO ([id number]), newspaper managing editor HIPOLITO NUÑEZ ([id number]) on 06/23/2021 10:46:26 A M Referred By: MONA Confirmed By:JOSHUA SHARMA MD
[2021-06-20] MEDS: Acetaminophen 500 MG Tablet 1000 MG PO (23:21)
--- NOTE | 2021-06-20 23:40 | RAD_ITS ---
EXAM: XR CHEST, 1 VIEW CLINICAL INDICATION: cough TECHNIQUE: Frontal view of the chest. This report was created using [employer] report generation technology. COMPARISON: 08/23/2020 FINDINGS: LUNGS AND PLEURAL SPACES: Ill-defined airspace opacities involving multiple lobes bilaterally. Consider pneumonia in the appropriate setting. HEART: Enlarged cardiac silhouette concerning for cardiomegaly and/or pericardial effusion. MEDIASTINUM: No tracheal abnormalities. BONES/JOINTS: Degenerative changes of the spine. SOFT TISSUES: Unremarkable. VASCULATURE: Vascular congestion at the upper lungs. Ectatic thoracic aortic arch with atherosclerotic calcifications. TUBES, LINES AND DEVICES: Right chest port identified with tip in the SVC above the cavoatrial junction. RAD/Chest 1 View (Portable) IMPRESSION: Congestive heart failure with possible superimposed pneumonia bilaterally. Electronically Signed: Jt Palma MD at 0:01 EST Tel , Service support ,
[2021-06-20 23:54] LABS: Hematocrit 27.1 % (37-47); Hemoglobin 8.7 g/dL (12.0-15.0); Mean Corp Hgb Conc 32.1 g/dL (32-36); Mean Corpuscular Hgb 32.6 pg (27.0-32.0); Mean Corpuscular Volume 101.5 fL (81-99); Mean Platelet Vol. 8.8 fl (6.2-12.0); POSITIVE COUNT YES; POSITIVE DIFFERENTIAL YES; POSITIVE MORPHOLOGY YES; Platelet Count 172 K/mm3 (150-450); RBC Distribution Width CV 15.8 % (11.6-14.6); RBC Distribution Width SD 58.4 fl (35.1-43.9); Red Blood Count 2.67 M/mm3 (4.2-5.4)
--- NOTE | 2021-06-20 23:55 | EX.ED.DYSGE1 ---
HPI History of Present Illness Chief Complaint: Shortness of Breath Narrative Narrative: Patient is an 80-year-old female with a past medical history of multiple myeloma. She states she recently began on a once daily antineoplastic pill. She states since taking this she has felt off. She states she has had chills fatigue and loose stool/diarrhea. Reportedly she had a bout of shortness of breath today and secondary to this EMS was called to bring her in for evaluation. Patient denies any known sick exposures and states she is fully vaccinated against COVID [facility] Medical History Ambulates with cane Anemia History of edema History of GI bleed History of irregular heartbeat History of transcatheter aortic valve replacement (TAVR) Multiple myeloma Non-smoker Shortness of breath on exertion Home Medications acetaminophen [Tylenol] 325 mg PO Q6H 06/22/17 [History Last Taken 08/23/20] acyclovir [Zovirax] 400 mg PO BID 06/22/17 [History Last Taken 08/23/20] gabapentin [Neurontin] 300 mg PO BID 06/22/17 [History Last Taken 08/23/20] tramadol 50 - 100 mg PO Q6H PRN PRN 11/14/18 [History Last Taken 08/23/20] furosemide 40 mg PO BID 08/23/20 [History Last Taken 08/23/20] Cbd Oil 1 applic TRANSDERMAL DAILY 02/28/21 [History Last Taken Unknown] Lactobac 41-B.bifid,lactis-FOS [Ultimate Probiotic-10] 1 cap PO DAILY 02/28/21 [History Last Taken Unknown] alpha lipoic acid 300 mg PO DAILY 02/28/21 [History Last Taken Unknown] aspirin 81 mg PO QHS 02/28/21 [History Last Taken Unknown] bacillus coagulans-inulin [Probiotic with Prebiotic] 1 cap PO DAILY 02/28/21 [History Last Taken Unknown] calcium carbonate-vitamin D3 [Calcium + D] 1 tab PO BID 02/28/21 [History Last Taken Unknown] cholecalciferol (vitamin D3) [Vitamin D3] 25 mcg PO DAILY 02/28/21 [History Last Taken Unknown] [id number] 1 cap PO DAILY 02/28/21 [History Last Taken Unknown] docosahexaenoic acid-epa [Fish Oil (with DHA-EPA)] 1 cap PO DAILY 02/28/21 [History Last Taken Unknown] fiber 1 cap PO DAILY 02/28/21 [History Last Taken Unknown] garlic 1,500 mg PO DAILY 02/28/21 [History Last Taken Unknown] fabby root-pyridoxine HCl(B6) 1 cap PO DAILY 02/28/21 [History Last Taken Unknown] magnesium 400 mg PO DAILY 02/28/21 [History Last Taken Unknown] multivitamin [Grapefruit-500] 1 tab PO DAILY 02/28/21 [History Last Taken Unknown] potassium,sodium citrates 1 tab PO DAILY 02/28/21 [History Last Taken Unknown] s-adenosylmethionine [Wander-E] 600 mg PO DAILY 02/28/21 [History Last Taken Unknown] turmeric-turmeric ext-pepper 1 cap PO DAILY 02/28/21 [History Last Taken Unknown] vitamin L86-dmvsn acid 1 candice SUBLINGUAL DAILY 02/28/21 [History Last Taken Unknown] vitamin C-vitamin E [Cranberry Concentrate] 1 cap PO DAILY 02/28/21 [History Last Taken Unknown] Allergy/AdvReac Type Severity Reaction Status Date / Time diazepam [From Valium] Allergy DELIRIUM Verified 06/20/21 22:36 lorazepam [From Ativan] Allergy DELIRIUM Verified 06/20/21 22:36 quetiapine [From Seroquel] Allergy DELIRIUM Verified 06/20/21 22:36 Surgical History History of bilateral cataract extraction History of bilateral knee replacement History of carpal tunnel release History of colonoscopy History of endoscopy Hx of LASIK Social History Smoking Status: Never smoker ROS ROS ED Constitutional Constitutional ED: Reports chills and fever(s) ENT ENT ED: Reports rhinorrhea; Denies sore throat Cardiovascular Cardiovascular: Denies chest pain, palpitations or racing heartbeat Respiratory/Chest Respiratory/Chest: Reports cough and dyspnea Gastrointestinal Gastrointestinal: Reports diarrhea; Denies abdominal pain, nausea or vomiting Genitourinary Genitourinary ED: Denies dysuria Musculoskeletal Musculoskeletal: Reports myalgias Integumentary Denies rash Neurologic Neurologic: Denies headache(s) Hematologic/Lymphatic Hematologic/Lymphatic: Denies easy bleeding or easy bruising EXAM Physical Exam Const Vital Signs: 06/20/21 22:31 06/20/21 22:38 06/21/21 00:59 Temperature 102.7 F H 102.7 F H 98.9 F Temperature Source Oral Oral Oral Pulse Rate 79 79 67 Respiratory Rate 24 H 20 H 23 H Respiratory Effort Short of Breath Labored Respiratory Depth Shallow Respiratory Pattern Normal Blood Pressure 135/70 H 135/70 H 107/55 L Blood Pressure Mean 91 91 72 Pulse Ox 94 93 95 Oxygen Delivery Method Room Air Room Air Nasal Cannula Oxygen Flow Rate (L/min) 2 Positive well nourished and well developed General Appearance ED: well developed HEENT Reports dry mucous membranes Mouth ED: Yes dry mucous membranes Mouth: dry mucous membranes Eyes PERRL and EOMs intact bilaterally General Eye ED: Negative for pale conjunctiva Neck supple and no JVD Chest Wall palpation of chest normal Chest Narrative: Patient has a port in her right chest wall that she states has been there for 4 years. There is no surrounding erythema warmth or discharge Resp normal respiratory effort Resp Narrative: Breath sounds are diminished throughout with faint expiratory wheeze in the bilateral bases but otherwise no signs of respiratory distress Cardio regular rate and regular rhythm Rate: other Other Details: Radial pulses are plus 2 out of 4 bilaterally are equal and symmetric GI normal to inspection, nondistended, normoactive bowel sounds, non-tender, non-distended and no masses GI Narrative: No voluntary guarding or rigidity no pulsatile mass Auscultation: normoactive bowel sounds Palpation: soft Extremity normal to inspection Extremity Narrative: Patient has +1-2 pitting edema to the bilateral lower extremities that is equal and symmetric but negative Homans' sign bilaterally Neuro oriented x3 and CN's II-XII intact bilaterally Sensorium / Orientation: alert Motor Exam: strength 5/5 throughout Psych mental status grossly normal Skin no rashes or lesions noted MDM MDM MDM Narrative Medical decision making narrative: Patient presented to the ER febrile at approximately 103. Despite this she was normal tensive and her oxygen level was 92 to 94% on room air. With the fever there is concern she has an infectious process such as COVID or pneumonia causing her increased shortness of breath and therefore a basic work-up was obtained that included blood cultures as well as COVID swab because of her immunocompromise status. Lab work shows that the patient is leukopenic from her baseline and she technically does not have neutropenia but her value is decreasing from baseline. X-ray shows changes consistent with congestive heart failure and her value is approximately tripled from the previous value 1 year ago. X-ray also questions possible pneumonia which would correlate with her fever. Therefore procalcitonin was added patient will be started on vancomycin and Zosyn because of her immunocompromise status. Even though she is not requiring oxygen to keep her sats greater than 90% with her dropping white blood cell count and neutrophil count immunocompromise status and fever I feel she needs to be kept in the hospital for the next few days to ensure symptoms are improving and therefore patient will be admitted at this time Lab Data Attestation: I reviewed the patient's lab results. Labs: Laboratory Results - last 24 hr 06/20/21 06/20/21 06/20/21 23:36 23:36 23:36 WBC 2.8 L RBC 2.67 L Hgb 8.7 L Hct 27.1 L MCV 101.5 H MCH 32.6 H MCHC 32.1 RDW Std Deviation 58.4 H RDW Coeff of Liz 15.8 H Plt Count 172 MPV 8.8 Neut % (Auto) Not Reportable Absolute Neuts (auto) 2.3 Absolute Lymphs (auto) 0.14 L Total Counted 100 Neutrophils % (Manual) 77 H Band Neutrophils % 5 Lymphocytes % (Manual) 5 L Monocytes % (Manual) 10 Metamyelocytes % 1 Myelocytes % 2 H Nucleated RBCs/100 WBC 3 Diff Path Review May foll Platelet Estimate ADEQUATE Ovalocytes RARE Sodium 131 L Potassium 3.7 Chloride 104 Carbon Dioxide 21.0 Anion Gap 6 BUN 26 H Creatinine 1.22 H Estim Creat Clear Calc 31.23 Est GFR (MDRD) Af Amer 54 L Est GFR (MDRD) Non-Af 45 L BUN/Creatinine Ratio 21.3 H Glucose 94 Lactic Acid 0.6 Calcium 7.6 L Magnesium 2.4 Troponin I High Sens 19 B-Natriuretic Peptide Urine Color Urine Clarity Urine pH Ur Specific [place] Urine Protein Urine Glucose (UA) Urine Ketones Urine Occult Blood Urine Nitrite Urine Bilirubin Urine Urobilinogen Ur Leukocyte Esterase Urine RBC Urine WBC Ur Squamous Epith Cells Amorphous Sediment Urine Bacteria Hyaline Casts Urine Mucus 06/20/21 06/21/21 23:36 00:10 WBC RBC Hgb Hct MCV MCH MCHC RDW Std Deviation RDW Coeff of Liz Plt Count MPV Neut % (Auto) Absolute Neuts (auto) Absolute Lymphs (auto) Total Counted Neutrophils % (Manual) Band Neutrophils % Lymphocytes % (Manual) Monocytes % (Manual) Metamyelocytes % Myelocytes % Nucleated RBCs/100 WBC Diff Path Review Platelet Estimate Ovalocytes Sodium Potassium Chloride Carbon Dioxide Anion Gap BUN Creatinine Estim Creat Clear Calc Est GFR (MDRD) Af Amer Est GFR (MDRD) Non-Af BUN/Creatinine Ratio Glucose Lactic Acid Calcium Magnesium Troponin I High Sens B-Natriuretic Peptide 1357.0 H Urine Color Yellow Urine Clarity Clear Urine pH 6.0 Ur Specific [place] 1.020 Urine Protein 100 H Urine Glucose (UA) Normal Urine Ketones Negative Urine Occult Blood 25 H Urine Nitrite Negative Urine Bilirubin Negative Urine Urobilinogen Normal Ur Leukocyte Esterase Negative Urine RBC 0-5 SEEN Urine WBC 0-5 SEEN Ur Squamous Epith Cells 0 SEEN Amorphous Sediment 1+ Urine Bacteria 0 SEEN Hyaline Casts 5-10 SEEN Urine Mucus 0 SEEN Radiography Diagnostic Testing: Clinical Impression(s) from Imaging Studies Chest X-Ray 06/20/21 23:40 IMPRESSION: Congestive heart failure with possible superimposed pneumonia bilaterally. Electronically Signed: Jt Palma MD at 0:01 EST Tel , Service support , Discharge Plan Triage Chief Complaint: Shortness of Breath ED Provider: Jt Martinez Dx/Rx/DC Orders Clinical Impression: Acute exacerbation of congestive heart failure, Pneumonia Primary Care Provider: Fco Casper Disposition Disposition: Acute Care Hospital [facility]
[2021-06-21] VITALS (13 sets, daily range): BP systolic 107–136; BP diastolic 43–62; PULSE 58–79; RESP 16–23; TEMP 36.8–39.3; O2SAT 94–98; BMI 41.1
[2021-06-21 00:03] LABS: Differential Indicated MANUAL DIFF
[2021-06-21 00:04] LABS: White Blood Count 2.8 K/mm3 (4.4-11.0)
[2021-06-21 00:11] LABS: Lactic Acid 0.6 mmol/L (0.4-1.9)
[2021-06-21 00:12] LABS: Anion Gap 6 (5-15); BUN 26 mg/dL (7-18); BUN/Creat Ratio 21.3 RATIO (10-20); Calcium,Total 7.6 mg/dL (8.5-10.1); Chloride 104 mmol/L (98-107); Creatinine, Serum 1.22 mg/dL (0.55-1.02); EST Glomerular Filtration Rate 45 mL/min (>60); Est Glom Filt Rate - Afr Amer 54 mL/min (>60); Estimated Creatinine Clearance 31.23 ml/min; Glucose 94 mg/dL (74-106); Magnesium 2.4 mg/dL (1.6-2.6); Potassium 3.7 mmol/L (3.5-5.1); Sodium Level 131 mmol/L (136-145); Troponin-I HS 19 pg/mL (3.0-54.0)
[2021-06-21 00:21] LABS: Metamyelocyte 1 % (0-1); Myelocyte 2 % (0-0); Neutrophil-Band 5 % (0-5); Neutrophil-Segmented 77 % (47-70); Total Cells Counted 100 (MANUAL DIFF)
[2021-06-21 00:22] LABS: Lymphocyte 5 % (19-41); Monocyte 10 % (0-10); Nucleated Red Bld Cells,Manual 3 % (0-5); Platelet Estimate ADEQUATE (ADEQ)
[2021-06-21 00:23] LABS: Bacteria 0 SEEN /hpf (None Seen); Color, Urine Yellow (Yellow); Glucose, Dipstick Normal (Normal); Ketone-Dipstick Negative (Negative); Leukocyte Esterase-Dipstick Negative /ul (Negative); Mucous, Urine 0 SEEN /hpf (<or=2+); Nitrite-Dipstick Negative (Negative); Occult Blood-Urine 25 /ul (Negative); Protein-Dipstick 100 mg/dl (Negative); Squamous Epithelial Cells - UA 0 SEEN /hpf (5-10); Urine Bilirubin Dipstick Negative (Negative); Urine Clarity Clear (Clear); Urine Urobilinogen Normal (Normal)
[2021-06-21 00:23] LABS: Ovalocyte RARE
[2021-06-21 00:24] LABS: Absolute Lymphocyte Count 0.14 X10^3/uL (0.83-4.51); Absolute Neutrophil Count 2.3 X10^3/uL (2.0-7.7); Lymphocyte # 0.14 X10^3/ul (0.83-4.51); Neutrophil # 2.32 X10^3/uL (2.7-7.7)
[2021-06-21 00:35] LABS: Red Blood Cells-Urine 0-5 SEEN /hpf (0-5); White Blood Cells 0-5 SEEN /hpf (0-5)
[2021-06-21 00:36] LABS: Hyaline Cast 5-10 SEEN /lpf (0-5)
[2021-06-21 00:37] LABS: Amorphous Sediment 1+
[2021-06-21] MEDS: Furosemide 40 MG/4 ML Vial IV ×3 (00:54→17:52)
--- NOTE | 2021-06-21 01:14 | PCM.HP.STD ---
[facility] - General General Date of Admission: 06/21/21 HPI Narrative KLEECHI HOBSON, is a 80 F with a significant history of TAVR (bovine replacement); multiple myeloma who was recently started on a new multiple myeloma pill presenting to the emergency department with progressively worsening shortness of breath that started about a day or 2 ago before presentation. Also she feels fluid congestion in her chest. Patient reported that initially she was on Lasix 40 mg p.o. twice daily but because she was having problems with low sodium her Lasix was decreased to 20 mg p.o. twice daily by her oncologist (Dr. Jose). Associated with her symptoms is a feeling of fluid in her chest. She reports chronic orthopnea that has not changed. She reported paroxysmal nocturnal dyspnea. Chronically she wears JENNY hose on her bilateral feet. With her new symptoms of shortness of breath her oncologist increase her Lasix back to 40 mg twice daily. However she was only able to take the first dose of the Lasix 40 mg before coming to the emergency department. She reports that she has been lethargic and unable to hold a conversation with her children. Paramedics were called and patient was brought to the emergency department. Associated with her symptoms is chills, malaise, fatigue and loose stools. She attributes her symptoms to the new chemotherapy medicine for multiple myeloma. She reports a home temperature of about 103 Fahrenheit. [facility] Medical History Ambulates with cane Anemia History of edema History of GI bleed History of irregular heartbeat History of transcatheter aortic valve replacement (TAVR) Multiple myeloma Non-smoker Shortness of breath on exertion Home Medications acetaminophen [Tylenol] 325 mg PO Q6H 06/22/17 [History Last Taken 08/23/20] acyclovir [Zovirax] 400 mg PO BID 06/22/17 [History Last Taken 08/23/20] gabapentin [Neurontin] 300 mg PO BID 06/22/17 [History Last Taken 08/23/20] tramadol 50 - 100 mg PO Q6H PRN PRN 11/14/18 [History Last Taken 08/23/20] furosemide 40 mg PO BID 08/23/20 [History Last Taken 08/23/20] Cbd Oil 1 applic TRANSDERMAL DAILY 02/28/21 [History Last Taken Unknown] Lactobac 41-B.bifid,lactis-FOS [Ultimate Probiotic-10] 1 cap PO DAILY 02/28/21 [History Last Taken Unknown] alpha lipoic acid 300 mg PO DAILY 02/28/21 [History Last Taken Unknown] aspirin 81 mg PO QHS 02/28/21 [History Last Taken Unknown] bacillus coagulans-inulin [Probiotic with Prebiotic] 1 cap PO DAILY 02/28/21 [History Last Taken Unknown] calcium carbonate-vitamin D3 [Calcium + D] 1 tab PO BID 02/28/21 [History Last Taken Unknown] cholecalciferol (vitamin D3) [Vitamin D3] 25 mcg PO DAILY 02/28/21 [History Last Taken Unknown] [id number] 1 cap PO DAILY 02/28/21 [History Last Taken Unknown] docosahexaenoic acid-epa [Fish Oil (with DHA-EPA)] 1 cap PO DAILY 02/28/21 [History Last Taken Unknown] fiber 1 cap PO DAILY 02/28/21 [History Last Taken Unknown] garlic 1,500 mg PO DAILY 02/28/21 [History Last Taken Unknown] fabby root-pyridoxine HCl(B6) 1 cap PO DAILY 02/28/21 [History Last Taken Unknown] magnesium 400 mg PO DAILY 02/28/21 [History Last Taken Unknown] multivitamin [Grapefruit-500] 1 tab PO DAILY 02/28/21 [History Last Taken Unknown] potassium,sodium citrates 1 tab PO DAILY 02/28/21 [History Last Taken Unknown] s-adenosylmethionine [Wander-E] 600 mg PO DAILY 02/28/21 [History Last Taken Unknown] turmeric-turmeric ext-pepper 1 cap PO DAILY 02/28/21 [History Last Taken Unknown] vitamin F84-czrmf acid 1 candice SUBLINGUAL DAILY 02/28/21 [History Last Taken Unknown] vitamin C-vitamin E [Cranberry Concentrate] 1 cap PO DAILY 02/28/21 [History Last Taken Unknown] Allergy/AdvReac Type Severity Reaction Status Date / Time diazepam [From Valium] Allergy DELIRIUM Verified 06/20/21 22:36 lorazepam [From Ativan] Allergy DELIRIUM Verified 06/20/21 22:36 quetiapine [From Seroquel] Allergy DELIRIUM Verified 06/20/21 22:36 Family History Other Diabetes Heart disease Surgical History History of bilateral cataract extraction History of bilateral knee replacement History of carpal tunnel release History of colonoscopy History of endoscopy Hx of LASIK Social History (Updated 06/21/21 @ 01:[address] Harshad Humphries MD) Smoking Status: Former smoker ROS ROS Narrative Constitutional: Reports fever, chills, and fatigue,. Reports about 8 pounds increase in weight in about one week. Eyes: Denies blurry vision, change in eye color, change in vision, discharge from eye(s), double vision, erythema, eye pain, loss of vision or other HEENT: Denies abnormal hearing, dysphagia, ear pain, epistaxis, headache(s), hearing loss, nasal congestion, nasal discharge, post nasal drip, sinus pressure, sore throat or other Cardiovascular: Denies chest pain or palpitations. Reports orthopnea requiring her to sleep chronically in a chair. Reports paroxysmal nocturnal dyspnea Respiratory/Chest: Denies cough, excessive phlegm production. Reports shortness of breath. Denies wheezes Gastrointestinal: Reports loose stools. Denies abdominal pain, coffee ground emesis, constipation, dyspepsia, hematemesis, hematochezia, melena, nausea, vomiting or other Genitourinary: Denies burning urination, difficulty urinating, dysuria, hematuria, nocturia, urinary frequency, urinary hesitancy, urinary incontinence, urinary urgency or other Musculoskeletal: Denies arthralgias, back pain, joint pain, joint stiffness, joint swelling, myalgias, neck pain or other Neurologic: Denies abnormal gait, abnormal speech, confusion, disequilibrium, dizziness, focal weakness, headache(s), numbness, paresthesias, seizure-like activity, seizures, syncope, tingling, tremor(s) or other Psychiatric: Denies anxiety, depression, homicidal ideation, suicidal ideation or other Endocrinology: Denies change in body appearance, cold intolerance, excessive sweating, heat intolerance, polydipsia, polyuria or other Hematologic/Lymphatic: Denies anemia, easy bleeding, easy bruising, lymphadenopathy or other Integumentary: Denies rashes Allergic/Immunologic: Denies rhinitis, hives, eczema, asthma or other Vital Signs Vital Signs Vital Signs: 06/20/21 22:31 06/20/21 22:38 06/21/21 00:59 Temperature 102.7 F H 102.7 F H 98.9 F Temperature Source Oral Oral Oral Pulse Rate 79 79 67 Respiratory Rate 24 H 20 H 23 H Respiratory Effort Short of Breath Labored Respiratory Depth Shallow Respiratory Pattern Normal Blood Pressure 135/70 H 135/70 H 107/55 L Blood Pressure Mean 91 91 72 Pulse Ox 94 93 95 Oxygen Delivery Method Room Air Room Air Nasal Cannula Oxygen Flow Rate (L/min) 2 Weight Weight: 112.1 kg Body Mass Index (BMI) 42.4 Physical Exam Narrative Physical exam: General: Morbidly obese. Head: Normocephalic, atraumatic, no tenderness Eyes: PERRLA, EOMI ENT, no trauma, moist mucous membranes, no rhinorrhea Neck: Nontender, full range of motion, no spinal tenderness, deformities, step-off CVS: Regular rate and rhythm. S1-S2 present. No murmur, gallop or rub. Respiratory : Rales, chest wall nontender, no wheezing Abdomen: Soft, nontender, nondistended, normal bowel sounds, no masses : Deferred Back: Nontender, no CVA tenderness, no midline spinal tenderness, deformities, step-offs Extremities: 2+ edema of bilateral legs; mild erythema of bilateral legs. Skin: Normal color, no trauma, abrasions Neuro: Alert, oriented, cranial nerves II through XII grossly intact. Psychiatry: Normal mood. Normal affect. Not depressed. Not anxious. Results Lab / Micro Data Result Diagrams: 06/20/21 23:36 06/20/21 23:36 Labs: Laboratory Results - last 24 hr 06/20/21 23:36: WBC 2.8 L, RBC 2.67 L, Hgb 8.7 L, Hct 27.1 L, MCV 101.5 H, MCH 32.6 H, MCHC 32.1, RDW Std Deviation 58.4 H, RDW Coeff of Liz 15.8 H, Plt Count 172, MPV 8.8, Neut % (Auto) Not Reportable, Absolute Neuts (auto) 2.3, Absolute Lymphs (auto) 0.14 L, Total Counted 100, Neutrophils % (Manual) 77 H, Band Neutrophils % 5, Lymphocytes % (Manual) 5 L, Monocytes % (Manual) 10, Metamyelocytes % 1, Myelocytes % 2 H, Nucleated RBCs/100 WBC 3, Diff Path Review May foll, Platelet Estimate ADEQUATE, Ovalocytes RARE 06/20/21 23:36: Sodium 131 L, Potassium 3.7, Chloride 104, Carbon Dioxide 21.0, Anion Gap 6, BUN 26 H, Creatinine 1.22 H, Estim Creat Clear Calc 31.23, Est GFR (MDRD) Af Amer 54 L, Est GFR (MDRD) Non-Af 45 L, BUN/Creatinine Ratio 21.3 H, Glucose 94, Calcium 7.6 L, Magnesium 2.4, Troponin I High Sens 19 06/20/21 23:36: Lactic Acid 0.6 06/20/21 23:36: B-Natriuretic Peptide 1357.0 H 06/21/21 00:10: Urine Color Yellow, Urine Clarity Clear, Urine pH 6.0, Ur Specific [place] 1.020, Urine Protein 100 H, Urine Glucose (UA) Normal, Urine Ketones Negative, Urine Occult Blood 25 H, Urine Nitrite Negative, Urine Bilirubin Negative, Urine Urobilinogen Normal, Ur Leukocyte Esterase Negative, Urine RBC 0-5 SEEN, Urine WBC 0-5 SEEN, Ur Squamous Epith Cells 0 SEEN, Amorphous Sediment 1+, Urine Bacteria 0 SEEN, Hyaline Casts 5-10 SEEN, Urine Mucus 0 SEEN Micro: Microbiology 06/20/21 23:36 Nasal Secretion SARS-CoV-2 Antigen (Rapid) - Final Radiology Impression Chest X-Ray 06/20/21 23:40 IMPRESSION: Congestive heart failure with possible superimposed pneumonia bilaterally. Electronically Signed: Jt Palma MD at 0:01 EST Tel , Service support , Assessment & Plan Assessment/Plan (1) Heart failure with preserved ejection fraction: QUALIFIERS: Heart failure chronicity: acute on chronic Qualified Code(s): I50.33 - Acute on chronic diastolic (congestive) heart failure (2) Morbid obesity with BMI of 40.0-44.9, adult: (3) Acute pneumonia: PLAN: Acute Exacerbation of heart failure with preserved ejection fraction Like secondary to reduction in dosage of home Lasix. Received Lasix 40 mg IV push at the emergency department. Lasix IV push continued. Hold home p.o. Lasix. Place on monitored bed on progressive care unit Weight on admission to the floor; and then daily Strict I&O's CXR independently reviewed confirms bilateral opacities and vascular congestion. Old chest x-ray reviewed showed that current chest x-ray has more fluid overload than previous. However patient reports that she had a TAVR about 6 to 8 months ago. Anticipate that she had an echocardiogram at that time. BNP was 1,357. Review of record showed a BNP on 08/23/2020 was 518. Review of old records shows that echocardiogram was done on 07/19/2017. Of note echocardiogram at that time showed ejection fraction of 60%. There was no evidence of diastolic dysfunction. Echo ordered to evaluate LVEF and wall motion Monitor electrolytes and renal function Trend blood pressure Continue home compression stockings Fluid restriction of 1500 mls daily Review of labs showed sodium of 131, likely secondary to hypovolemia/Lasix use. Trend CMP. Cardiac diet Pneumonia, gram-positive, gram-negative or atypical Patient with T-max of 102.7 Fahrenheit at the emergency department; tachypnea with respiratory rate as high as 24 at the emergency department. White count of 2.8, qSOFA: 1 (respiratory rate more equal to 22), sepsis ruled out. Rapid COVID antigen was negative. Patient has been vaccinated with COVID 19 vaccination and has had a booster. Differential diagnoses include drug fever. Of note procalcitonin ordered emergency department was low at 0.1. Given vancomycin and Zosyn at the emergency department. While inpatient azithromycin and ceftriaxone ordered. We will check strep pneumonia antigen and Legionella urine antigen. Incentive spirometer ordered. Chronic anemia Hemoglobin of 8.7, chronic likely secondary to chemotherapy/multiple myeloma. Trend CBC. Hypocalcemia Calcium of 7.6 Asymptomatic. Will check CMP with albumin in a.m. CKD stage 3b Appears stable. Trend CMP. Morbid Obesity: BMI: 42.4 kilograms per metered square. Complicates care. Lifestyle modification recommended. DVT prophylaxis: Subcutaneous Lovenox ordered. Charges/Coding Visit Charges Inpatient E&M: 39137 Init Hosp L3
--- NOTE | 2021-06-21 02:08 | ECHOCS_ITS ---
Reason For Study: CHF Procedure This was a 2D Doppler, Color Flow transthoracic echocardiogram. Technically difficult study due to patients body habitus. Patient was unable to lay in position due to SOB. Contrast injection was performed. Exam performed portable in patient room. Left Ventricle Normal left ventricle. The estimated ejection fraction is 55-60 %. Right Ventricle Normal right ventricle. Normal systolic function. Atria The left atrium is mildly enlarged. Normal right atrium. Mitral Valve There is mild to moderate mitral annular calcification. Trivial mitral valve insufficiency. Tricuspid Valve Normal tricuspid valve. Aortic Valve Normal AV Bioprothetic function with ANDREZ 2.0 cm2 Mild paravalvular regurgitation. Pulmonic Valve The pulmonic valve is not well visualized. Great Vessels Normal aortic root. Pericardium/Pleural No pericardial effusion. Medication Diluted definity 2ml given slow IV push to enhance endocardial definition. MMode/2D Measurements & Calculations LVIDd: 5.1 cm IVSd: 1.2 cm LVOT diam: 2.0 cm LVIDs: 3.2 cm LVPWd: 1.1 cm FS: 37.0 % LVOT area: 3.2 cm2 LA dimension: 4.2 cm LAV(MOD-bp): 72.7 ml LA A4 area: 19.9 cm2 LAV(MOD-bp) Indexed: 34.5 ml/m2 LAV(MOD-sp2): 90.7 ml LAV(MOD-sp4): 57.5 ml RA A4 area: 18.7 cm2 Time Measurements MV dec time: 0.18 sec Doppler Measurements & Calculations MV E max david: 142.7 cm/sec Lat Peak E' David: 12.1 cm/sec Med Peak E' David: 13.1 cm/sec MV A max david: 94.9 cm/sec E/E' lat: 11.8 E/E' med: 10.9 MV E/A: 1.5 MV V2 max: 163.7 cm/sec MV P1/2t max david: 164.7 cm/sec Ao V2 max: 260.8 cm/sec MV max P.7 mmHg MV P1/2t: 77.2 msec Ao max P.2 mmHg MV V2 mean: 86.6 cm/sec MV dec slope: 625.0 cm/sec2 Ao V2 mean: 172.2 cm/sec MV mean P.5 mmHg Ao mean P.9 mmHg MV V2 VTI: 46.0 cm MVA(P1/2t): 2.9 cm2 Ao V2 VTI: 57.0 cm MVA(VTI): 2.6 cm2 ANDREZ(I,D): 2.1 cm2 ANDREZ(V,D): 2.0 cm2 LV V1 max: 161.6 cm/sec SV(LVOT): 117.6 ml TR max david: 291.3 cm/sec LV V1 max P.5 mmHg TR max P.0 mmHg LV V1 mean P.7 mmHg LV V1 mean: 109.4 cm/sec LV V1 VTI: 36.8 cm ECHO/Echo Complete W/ Contrast Interpretation Summary The estimated ejection fraction is 55-60 %. Normal AV Bioprothetic function with ANDREZ 2.0 cm2 Mild paravalvular regurgitation RVSP 39mmhg Ordering Physician: Harshad Humphries Referring Physician: MD Tremayne Fco Performed By: Yordy Mccarty, [place]
[2021-06-21 03:02] LABS: ALB/GLOB Ratio 0.5 RATIO (0.9-2.4); AST(SGOT) 20 U/L (15-37); Alanine Aminotransfer ALT/SGPT 25 U/L (13-56); Albumin, Serum 2.8 g/dL (3.2-5.0); Alkaline Phosphatase 99 U/L (45-117); Anion Gap 7 (5-15); BUN 25 mg/dL (7-18); BUN/Creat Ratio 18.4 RATIO (10-20); Calcium,Total 7.4 mg/dL (8.5-10.1); Chloride 105 mmol/L (98-107); Creatinine, Serum 1.36 mg/dL (0.55-1.02); EST Glomerular Filtration Rate 40 mL/min (>60); Est Glom Filt Rate - Afr Amer 48 mL/min (>60); Estimated Creatinine Clearance 28.01 ml/min; Globulin 5.7 g/dL (2.2-4.2); Glucose 92 mg/dL (74-106); Potassium 3.7 mmol/L (3.5-5.1); Protein, Total 8.5 g/dL (6.4-8.2); Sodium Level 133 mmol/L (136-145)
[2021-06-21] MEDS: Potassium Chloride Oral Tablet 20 MEQ PO (04:56)
[2021-06-21 06:13] LABS: Hematocrit 31.4 % (37-47); Hemoglobin 9.9 g/dL (12.0-15.0); Mean Corp Hgb Conc 31.5 g/dL (32-36); Mean Corpuscular Hgb 32.1 pg (27.0-32.0); Mean Corpuscular Volume 101.9 fL (81-99); Mean Platelet Vol. 9.8 fl (6.2-12.0); POSITIVE COUNT YES; POSITIVE DIFFERENTIAL YES; POSITIVE MORPHOLOGY YES; Platelet Count 195 K/mm3 (150-450); RBC Distribution Width CV 15.9 % (11.6-14.6); RBC Distribution Width SD 59.8 fl (35.1-43.9); Red Blood Count 3.08 M/mm3 (4.2-5.4); White Blood Count 2.9 K/mm3 (4.4-11.0)
[2021-06-21 06:16] LABS: Differential Indicated MANUAL DIFF
[2021-06-21 06:42] LABS: Basophil 1 % (0-1); Eosinophil 0 % (0-5); Lymphocyte 9 % (19-41); Metamyelocyte 2 % (0-1); Monocyte 11 % (0-10); Myelocyte 3 % (0-0); Neutrophil-Band 8 % (0-5); Neutrophil-Segmented 64 % (47-70); Promyelocyte 2 % (0-0); Total Cells Counted 100 (MANUAL DIFF)
[2021-06-21 06:43] LABS: Nucleated Red Bld Cells,Manual 4 % (0-5); Platelet Estimate ADEQUATE (ADEQ); Red Cell Morphology NORM C+C NORMAL (NORM C&C)
[2021-06-21 06:44] LABS: Absolute Lymphocyte Count 0.26 X10^3/uL (0.83-4.51); Absolute Neutrophil Count 2.1 X10^3/uL (2.0-7.7); Lymphocyte # 0.26 X10^3/ul (0.83-4.51); Neutrophil # 2.11 X10^3/uL (2.7-7.7)
--- NOTE | 2021-06-21 08:21 | PCM.PN.HOSP ---
Subjective Subjective Follow-up on acute hypoxic respiratory failure/acute CHF/pneumonia: Patient was seen and made. She was admitted this morning she complains of feeling cold. Denied any dizziness or chest pain. Not on oxygen She has been spiking fevers. Urine Legionella and streptococcal antigens are negative. Blood cultures are pending Labs are otherwise stable Vitals reviewed Switch from IV ceftriaxone and azithromycin to IV vancomycin and Zosyn, in view of her immunocompromise state Continue on IV Lasix Objective Data Objective Data Vital Signs: Vital Signs Temp Pulse Resp BP Pulse Ox 98.3 F 67 16 110/51 L 95 06/21/21 02:23 06/21/21 07:09 06/21/21 03:08 06/21/21 02:23 06/21/21 03:08 Oxygen Flow Rate (L/min) 2 Oxygen Delivery Method Room Air Weight: 108.8 kg Body Mass Index (BMI) 41.1 Intake & Output: Intake and Output for Last 24 Hours 06/19/21 06/20/21 06/21/21 23:59 23:59 23:59 Intake Total 1235 / 1235 Output Total 1000 / 1000 Balance 235 / 235 Lab / Micro Data Result Diagrams: 06/21/21 05:08 06/21/21 02:11 Labs: Laboratory Results - last 24 hr 06/20/21 23:36: WBC 2.8 L, RBC 2.67 L, Hgb 8.7 L, Hct 27.1 L, MCV 101.5 H, MCH 32.6 H, MCHC 32.1, RDW Std Deviation 58.4 H, RDW Coeff of Liz 15.8 H, Plt Count 172, MPV 8.8, Neut % (Auto) Not Reportable, Absolute Neuts (auto) 2.3, Absolute Lymphs (auto) 0.14 L, Total Counted 100, Neutrophils % (Manual) 77 H, Band Neutrophils % 5, Lymphocytes % (Manual) 5 L, Monocytes % (Manual) 10, Metamyelocytes % 1, Myelocytes % 2 H, Nucleated RBCs/100 WBC 3, Diff Path Review May foll, Platelet Estimate ADEQUATE, Ovalocytes RARE 06/20/21 23:36: Sodium 131 L, Potassium 3.7, Chloride 104, Carbon Dioxide 21.0, Anion Gap 6, BUN 26 H, Creatinine 1.22 H, Estim Creat Clear Calc 31.23, Est GFR (MDRD) Af Amer 54 L, Est GFR (MDRD) Non-Af 45 L, BUN/Creatinine Ratio 21.3 H, Glucose 94, Calcium 7.6 L, Magnesium 2.4, Troponin I High Sens 19 06/20/21 23:36: Lactic Acid 0.6 06/20/21 23:36: B-Natriuretic Peptide 1357.0 H 06/21/21 00:10: Urine Color Yellow, Urine Clarity Clear, Urine pH 6.0, Ur Specific [place] 1.020, Urine Protein 100 H, Urine Glucose (UA) Normal, Urine Ketones Negative, Urine Occult Blood 25 H, Urine Nitrite Negative, Urine Bilirubin Negative, Urine Urobilinogen Normal, Ur Leukocyte Esterase Negative, Urine RBC 0-5 SEEN, Urine WBC 0-5 SEEN, Ur Squamous Epith Cells 0 SEEN, Amorphous Sediment 1+, Urine Bacteria 0 SEEN, Hyaline Casts 5-10 SEEN, Urine Mucus 0 SEEN 06/21/21 00:52: Procalcitonin 0.10 H 06/21/21 02:11: Sodium 133 L, Potassium 3.7, Chloride 105, Carbon Dioxide 21.0, Anion Gap 7, BUN 25 H, Creatinine 1.36 H, Estim Creat Clear Calc 28.01, Est GFR (MDRD) Af Amer 48 L, Est GFR (MDRD) Non-Af 40 L, BUN/Creatinine Ratio 18.4, Glucose 92, Calcium 7.4 L, Total Bilirubin 0.30, AST 20, ALT 25, Alkaline Phosphatase 99, Total Protein 8.5 H, Albumin 2.8 L, Globulin 5.7 H, Albumin/Globulin Ratio 0.5 L 06/21/21 05:08: WBC 2.9 L, RBC 3.08 L, Hgb 9.9 L, Hct 31.4 L, MCV 101.9 H, MCH 32.1 H, MCHC 31.5 L, RDW Std Deviation 59.8 H, RDW Coeff of Liz 15.9 H, Plt Count 195, MPV 9.8, Neut % (Auto) Not Reportable, Absolute Neuts (auto) 2.1, Absolute Lymphs (auto) 0.26 L, Total Counted 100, Neutrophils % (Manual) 64, Band Neutrophils % 8 H, Lymphocytes % (Manual) 9 L, Monocytes % (Manual) 11 H, Eosinophils % (Manual) 0, Basophils % (Manual) 1, Metamyelocytes % 2 H, Myelocytes % 3 H, Promyelocytes % 2 H, Nucleated RBCs/100 WBC 4, Diff Path Review September, Platelet Estimate ADEQUATE, RBC Morphology NORM C+C Micro: Microbiology 06/21/21 00:10 Urine, Random Legionella Antigen - Final 06/21/21 00:10 Urine, Random Streptococcus pneumoniae Antigen (M - Final 06/20/21 23:36 Nasal Secretion SARS-CoV-2 Antigen (Rapid) - Final Radiography Diagnostic Testing: Radiology Impression Chest X-Ray 06/20/21 23:40 IMPRESSION: Congestive heart failure with possible superimposed pneumonia bilaterally. Electronically Signed: Jt Palma MD at 0:01 EST Tel , Service support ,
--- NOTE | 2021-06-21 09:50 | CASEMGMT ---
VERONA KEITH Face to Face with patient for initial transition planning/care coordination assessment. RN SAGAR introduced self and role at [facility]. Patient lying in bed, alert and oriented, son at bedside. Patient willing to participate in assessment and is able to answer all questions appropriately. Care providers, pharmacy, and demographics verified. Patient wishes to discharge home, denies need for home health at this time. Son Ernie states no concerns with patient discharging to home. CM provided patient and son with HHC list should they need HHC in the future and explained that if need to follow-up with PCP. Patient and son voiced understanding. Patient states she has no further needs or concerns at this time. CM to follow for discharge planning needs that may arise. PCP: Tremayne Specialists: Damon oncologist Preferred Pharmacy: [facility] Insurance: [facility] Silvio Prescription Benefit: yes Living Will/HPOA: yes, son Ernie Tyler LNOK: son Living Arrangements: Patient lives alone in a single story home with stair lift to enter the home. Patient states she is independent for selfcare at home. Transportation: self, son, aide DME/HHC: Patient states she has shower chair, raised toilet, cane, walker, and grab bars at home. Patient has private aide to assist with laundry and meals. Patient has previously been to [facility]. Disposition Plan: Patient to discharge home with family support and follow-up plans in place. Miriam ARNOLD, RN, CM
[2021-06-21] MEDS: Enoxaparin 40 MG/0.4 ML Syringe SC (10:23)
[2021-06-21] MEDS: Acetaminophen 325 MG Tablet 650 MG PO ×2 (10:23→17:59)
--- NOTE | 2021-06-21 11:50 | PCM.RX.CS ---
Consult Type of Consult: New start Suspected Infection: Pneumonia Labs: Sodium 133 mmol/L (136-145) L 06/21/21 02:11 Potassium 3.7 mmol/L (3.5-5.1) 06/21/21 02:11 Chloride 105 mmol/L (98-107) 06/21/21 02:11 Carbon Dioxide 21.0 mmol/L (21.0-32.0) 06/21/21 02:11 Anion Gap 7 (5-15) 06/21/21 02:11 BUN 25 mg/dL (7-18) H 06/21/21 02:11 Creatinine 1.36 mg/dL (0.55-1.02) H 06/21/21 02:11 Est GFR (MDRD) Af Amer 48 mL/min (>60) L 06/21/21 02:11 Est GFR (MDRD) Non-Af 40 mL/min (>60) L 06/21/21 02:11 BUN/Creatinine Ratio 18.4 RATIO (10-20) 06/21/21 02:11 Glucose 92 mg/dL (74-106) 06/21/21 02:11 Microbiology: Microbiology 06/21/21 00:10 Urine, Random Legionella Antigen - Final 06/21/21 00:10 Urine, Random Streptococcus pneumoniae Antigen (M - Final 06/20/21 23:36 Nasal Secretion SARS-CoV-2 Antigen (Rapid) - Final Goal Trough: 15-20 mcg/mL Pharmacy Plan for Drug Dosing: NEW START IV VANCOMYCIN Consulting Physician: Dr. Ponce Indication: Pneumonia Goal Trough: 15-20 SrCr: 1.36 CrCl: 28 mL/min Comments: had 1750mg IV x1 in ED 06/21/21 @0150 Vancomcyin Dose: 1000mg IV Q24hr to start 06/22/21 @0200 Pending Level: 06/23/21 @0130, prior to 3rd total dose per protocol Pharmacy Service will continue to monitor and adjust dosing as required.
[2021-06-21] MEDS: 0.9% Saline Lock 10 ML Syringe IV (17:52)
--- NOTE | 2021-06-21 19:46 | PCS.PANDOC ---
PANDEMIC DOCUMENTATION INITIATED: Date: 01/13/2021 Time: 190
[2021-06-22] VITALS (11 sets, daily range): BP systolic 100–122; BP diastolic 55–56; PULSE 66–86; RESP 16–18; TEMP 37–38.3; O2SAT 93–96
[2021-06-22] MEDS: Vancomycin IV 1,000 MG/200 ML BAG 200 MG IV (02:22)
[2021-06-22 08:18] LABS: Absolute Lymphocyte Count 0.18 X10^3/uL (0.83-4.51); Absolute Neutrophil Count 1.3 X10^3/uL (2.0-7.7); Basophil# 0.03 X10^3/uL; Basophil% 1.7 % (0-1); Differential Indicated SCAN CRITERIA MET; Lymphocyte # 0.18 X10^3/ul (0.83-4.51); Lymphocyte % 10.3 % (19-41); Mean Corp Hgb Conc 32.3 g/dL (32-36); Mean Corpuscular Hgb 32.4 pg (27.0-32.0); Mean Corpuscular Volume 100.3 fL (81-99); Mean Platelet Vol. 9.5 fl (6.2-12.0); Monocyte# 0.23 X10^3/uL; Monocyte% 13.2 % (0-10); NRBC Flagged by Analyzer 2.3 % (0-5); Neutrophil # 1.27 X10^3/uL (2.7-7.7); Neutrophil % 73.1 % (47-70); POSITIVE DIFFERENTIAL YES; POSITIVE MORPHOLOGY YES; Platelet Count 133 K/mm3 (150-450); RBC Distribution Width CV 15.9 % (11.6-14.6); RBC Distribution Width SD 58.8 fl (35.1-43.9); Red Blood Count 3.09 M/mm3 (4.2-5.4); White Blood Count 1.7 K/mm3 (4.4-11.0)
[2021-06-22] MEDS: Potassium Chloride Oral Tablet 20 MEQ PO (08:42)
[2021-06-22] MEDS: Furosemide 40 MG/4 ML Vial IV ×2 (08:43→17:13)
[2021-06-22 08:45] LABS: Anisocytosis RARE; Hypochromasia 1+; Macrocytosis 1+; Platelet Estimate ADEQUATE (ADEQ)
[2021-06-22] MEDS: Enoxaparin 40 MG/0.4 ML Syringe SC (08:46)
[2021-06-22] MEDS: 0.9% Saline Lock 10 ML Syringe IV ×2 (08:50→17:14)
--- NOTE | 2021-06-22 08:53 | PN.HOSP_ITS ---
Subjective Subjective Follow-up on pneumonia/acute CHF: Patient was seen and examined. She remains off oxygen. She stated that she feels improved. Denied any fever or chills. Objective Data Objective Data Vital Signs: Vital Signs Temp Pulse Resp BP Pulse Ox 98.7 F 75 18 112/55 L 94 06/22/21 08:40 06/22/21 08:40 06/22/21 08:40 06/22/21 08:40 06/22/21 08:40 Oxygen Flow Rate (L/min) 2 Oxygen Delivery Method Room Air Weight: 108.8 kg Body Mass Index (BMI) 41.1 Intake & Output: Intake and Output for Last 24 Hours 06/20/21 06/21/21 06/22/21 23:59 23:59 23:59 Intake Total 1914 / 1964 400 / 400 Output Total 1899 / 1899 Balance 400 / 400 Lab / Micro Data Result Diagrams: 06/22/21 08:09 06/21/21 02:11 Labs: Laboratory Results - last 24 hr 06/22/21 08:09: WBC 1.7 L, RBC 3.09 L, Hgb 10.0 L, Hct 31.0 L, MCV 100.3 H, MCH 32.4 H, MCHC 32.3, RDW Std Deviation 58.8 H, RDW Coeff of Liz 15.9 H, Plt Count 133 L, MPV 9.5, Immature Gran % (Auto) 1.700 H, Neut % (Auto) 73.1 H, Lymph % (Auto) 10.3 L, [place] % (Auto) 13.2 H, Eos % (Auto) 0.0, Baso % (Auto) 1.7 H, Absolute Neuts (auto) 1.3 L, Absolute Lymphs (auto) 0.18 L, Nucleated RBC % 2.3, Diff Path Review September, Platelet Estimate ADEQUATE, Hypochromasia 1+, Anisocytosis RARE, Macrocytosis 1+ Micro: Microbiology 06/21/21 00:10 Urine, Random Legionella Antigen - Final 06/21/21 00:10 Urine, Random Streptococcus pneumoniae Antigen (M - Final 06/20/21 23:36 Nasal Secretion SARS-CoV-2 Antigen (Rapid) - Final Radiography Diagnostic Testing: Radiology Impression Echocardiogram 06/21/21 02:08 Interpretation Summary The estimated ejection fraction is 55-60 %. Normal AV Bioprothetic function with ANDREZ 2.0 cm2 Mild paravalvular regurgitation RVSP 39mmhg Ordering Physician: Harshad Humphries Referring Physician: MD Tremayne Fco Performed By: Yordy Mccarty RCS Physical Exam Narrative Physical exam: General: Alert, Oriented x3, Cooperative, No apparent distress, Well developed HEENT: Atraumatic Oral: Moist Mucosa Neck: Supple Lungs: Clear to auscultation Cardiovascular: HS I+II, regular, no murmurs Abdomen: Bowel Sounds Present, Soft, Non Tender Extremities: No edema Skin: No rashes, No breakdown Neurological: Grossly intact Psych/Mental Status: Appropriate Assessment & Plan Assessment/Plan (1) Heart failure with preserved ejection fraction: QUALIFIERS: Heart failure chronicity: acute on chronic Qualified Code(s): I50.33 - Acute on chronic diastolic (congestive) heart failure (2) Morbid obesity with BMI of 40.0-44.9, adult: (3) Acute pneumonia: PLAN: 1. Acute Exacerbation of heart failure with preserved ejection fraction, EF 55-60% Improving, continue on Lasix and CHF protocol 2. Pneumonia, multilobar, seen on CXR Patient is immunocompromised, on chemotherapy for multiple myeloma Urine Legionella and streptococcal antigen are negative Continue on IV vancomycin and Zosyn 3. Status post TAVR - 6 -8 months, 2d-echo in this admission shows intact bioprosthetic valve with ANDREZ 2.0cm 4. Chronic anemia, hemoglobin is stable at 10.0 Continue to monitor Hemoglobin of 8.7, chronic likely secondary to chemotherapy/multiple myeloma. Trend CBC. 5. DVT prophylaxis?Lovenox subcu Charges/Coding Visit Charges Inpatient E&M: 67470 Subs Hosp L2
[2021-06-22 13:00] LABS: ALB/GLOB Ratio 0.4 RATIO (0.9-2.4); AST(SGOT) 18 U/L (15-37); Alanine Aminotransfer ALT/SGPT 23 U/L (13-56); Albumin, Serum 2.6 g/dL (3.2-5.0); Alkaline Phosphatase 85 U/L (45-117); Anion Gap 8 (5-15); BUN 22 mg/dL (7-18); BUN/Creat Ratio 14.3 RATIO (10-20); Calcium,Total 7.2 mg/dL (8.5-10.1); Chloride 105 mmol/L (98-107); Creatinine, Serum 1.54 mg/dL (0.55-1.02); EST Glomerular Filtration Rate 34 mL/min (>60); Est Glom Filt Rate - Afr Amer 42 mL/min (>60); Estimated Creatinine Clearance 24.74 ml/min; Glucose 162 mg/dL (74-106); Protein, Total 8.6 g/dL (6.4-8.2); Sodium Level 132 mmol/L (136-145)
[2021-06-23] MEDS: Vancomycin IV 1,000 MG/200 ML BAG 200 MG IV (01:54)
[2021-06-23 02:03] LABS: Absolute Lymphocyte Count 0.28 X10^3/uL (0.83-4.51); Absolute Neutrophil Count 1.3 X10^3/uL (2.0-7.7); Basophil# 0.03 X10^3/uL; Basophil% 1.6 % (0-1); Eosinophil# 0.02 X10^3/uL; Eosinophils% 1.1 % (0-5); Hematocrit 32.9 % (37-47); Hemoglobin 10.7 g/dL (12.0-15.0); Lymphocyte # 0.28 X10^3/ul (0.83-4.51); Lymphocyte % 15.2 % (19-41); Mean Corp Hgb Conc 32.5 g/dL (32-36); Mean Corpuscular Hgb 32.4 pg (27.0-32.0); Mean Corpuscular Volume 99.7 fL (81-99); Mean Platelet Vol. 10.2 fl (6.2-12.0); Monocyte# 0.21 X10^3/uL; Monocyte% 11.4 % (0-10); NRBC Flagged by Analyzer 2.2 % (0-5); Neutrophil # 1.27 X10^3/uL (2.7-7.7); Neutrophil % 69.1 % (47-70); POSITIVE DIFFERENTIAL YES; Platelet Count 154 K/mm3 (150-450); RBC Distribution Width CV 15.9 % (11.6-14.6); RBC Distribution Width SD 58.4 fl (35.1-43.9); White Blood Count 1.8 K/mm3 (4.4-11.0)
[2021-06-23 02:08] LABS: Differential Indicated SCAN CRITERIA MET
[2021-06-23 02:31] LABS: ALB/GLOB Ratio 0.4 RATIO (0.9-2.4); AST(SGOT) 22 U/L (15-37); Alanine Aminotransfer ALT/SGPT 18 U/L (13-56); Albumin, Serum 2.7 g/dL (3.2-5.0); Alkaline Phosphatase 84 U/L (45-117); Anion Gap 8 (5-15); BUN 32 mg/dL (7-18); BUN/Creat Ratio 18.5 RATIO (10-20); Calcium,Total 7.6 mg/dL (8.5-10.1); Chloride 107 mmol/L (98-107); Creatinine, Serum 1.73 mg/dL (0.55-1.02); EST Glomerular Filtration Rate 30 mL/min (>60); Est Glom Filt Rate - Afr Amer 36 mL/min (>60); Estimated Creatinine Clearance 22.02 ml/min; Globulin 6.2 g/dL (2.2-4.2); Glucose 101 mg/dL (74-106); Potassium 3.3 mmol/L (3.5-5.1); Protein, Total 8.9 g/dL (6.4-8.2); Sodium Level 134 mmol/L (136-145); Vancomycin, Trough Level 13.4 ug/mL (5.0-15.0)
--- NOTE | 2021-06-23 02:38 | PCM.RX.CS ---
Consult Pharmacy has been consulted to manage selected antiobiotic: Vancomycin Type of Consult: Follow-up Suspected Infection: Pneumonia Prior Doses of Antibiotics Received/Current Regimen: Medications Vancomycin HCl (Vancomycin) 1,000 mg in 200 mls @ 200 mls/hr IV Q24H CLAUDETTE Last Admin: 06/23/21 01:54 Dose: 200 mls/hr Labs: Sodium 134 mmol/L (136-145) L 06/23/21 01:40 Potassium 3.3 mmol/L (3.5-5.1) L 06/23/21 01:40 Chloride 107 mmol/L (98-107) 06/23/21 01:40 Carbon Dioxide 19.0 mmol/L (21.0-32.0) L 06/23/21 01:40 Anion Gap 8 (5-15) 06/23/21 01:40 BUN 32 mg/dL (7-18) H 06/23/21 01:40 Creatinine 1.73 mg/dL (0.55-1.02) H 06/23/21 01:40 Est GFR (MDRD) Af Amer 36 mL/min (>60) L 06/23/21 01:40 Est GFR (MDRD) Non-Af 30 mL/min (>60) L 06/23/21 01:40 BUN/Creatinine Ratio 18.5 RATIO (10-20) 06/23/21 01:40 Glucose 101 mg/dL (74-106) 06/23/21 01:40 Vancomycin Trough 13.4 ug/mL (5.0-15.0) 06/23/21 01:40 Microbiology: Microbiology 06/21/21 00:10 Urine, Random Legionella Antigen - Final 06/21/21 00:10 Urine, Random Streptococcus pneumoniae Antigen (M - Final 06/20/21 23:36 Nasal Secretion SARS-CoV-2 Antigen (Rapid) - Final Weight used for dosin kg Estimated Creatinine Clearance: 22 Goal Trough: 15-20 mcg/mL Pharmacy Plan for Drug Dosing: Vancomycin trough level was 13.4, slightly below the target range of 15-20. It was an appropriate 23?-hr level. Due to a 3 day rise in SCr we will not increase dose. Another trough will be drawn in 2 days to determine if adjustment is necessary. Pharmacy Service will continue to monitor and adjust dosing as required. Follow-Up Labs: Trough Vancomycin Labs to be done on [date and time ordered]: 06/25/21 @0131
[2021-06-23 02:40] VITALS: BP 102/64; PULSE 76; RESP 14; TEMP 36.8; O2SAT 95
[2021-06-23 04:30] VITALS: PULSE 70
[2021-06-23 07:00] VITALS: PULSE 65
[2021-06-23 07:18] VITALS: O2SAT 91
--- NOTE | 2021-06-23 07:34 | PCM.PN.HOSP ---
Objective Data Objective Data Vital Signs: Vital Signs Temp Pulse Resp BP Pulse Ox 98.3 F 70 14 102/64 91 06/23/21 02:40 06/23/21 04:30 06/23/21 02:40 06/23/21 02:40 06/23/21 07:18 Oxygen Flow Rate (L/min) 2 Oxygen Delivery Method Room Air Weight: 239 lb 13.807 oz Body Mass Index (BMI) 41.1 Intake & Output: Intake and Output for Last 24 Hours 06/21/21 06/22/21 06/23/21 23:59 23:59 23:59 Intake Total 1914 / 1964 980 / 1330 720 / 720 Output Total 1900 / 1900 400 / 400 Balance 580 / 930 720 / 720 Lab / Micro Data Result Diagrams: 06/23/21 01:40 06/23/21 01:40 Labs: Laboratory Results - last 24 hr 06/22/21 08:09: WBC 1.7 L, RBC 3.09 L, Hgb 10.0 L, Hct 31.0 L, MCV 100.3 H, MCH 32.4 H, MCHC 32.3, RDW Std Deviation 58.8 H, RDW Coeff of Liz 15.9 H, Plt Count 133 L, MPV 9.5, Immature Gran % (Auto) 1.700 H, Neut % (Auto) 73.1 H, Lymph % (Auto) 10.3 L, [place] % (Auto) 13.2 H, Eos % (Auto) 0.0, Baso % (Auto) 1.7 H, Absolute Neuts (auto) 1.3 L, Absolute Lymphs (auto) 0.18 L, Nucleated RBC % 2.3, Diff Path Review September, Platelet Estimate ADEQUATE, Hypochromasia 1+, Anisocytosis RARE, Macrocytosis 1+ 06/22/21 08:09: Sodium 132 L, Potassium 3.0 L, Chloride 105, Carbon Dioxide 19.0 L, Anion Gap 8, BUN 22 H, Creatinine 1.54 H, Estim Creat Clear Calc 24.74, Est GFR (MDRD) Af Amer 42 L, Est GFR (MDRD) Non-Af 34 L, BUN/Creatinine Ratio 14.3, Glucose 162 H, Calcium 7.2 L, Total Bilirubin 0.30, AST 18, ALT 23, Alkaline Phosphatase 85, Total Protein 8.6 H, Albumin 2.6 L, Globulin 6.0 H, Albumin/Globulin Ratio 0.4 L 06/23/21 01:40: Vancomycin Trough 13.4 06/23/21 01:40: WBC 1.8 L, RBC 3.30 L, Hgb 10.7 L, Hct 32.9 L, MCV 99.7 H, MCH 32.4 H, MCHC 32.5, RDW Std Deviation 58.4 H, RDW Coeff of Liz 15.9 H, Plt Count 154, MPV 10.2, Immature Gran % (Auto) 1.600 H, Neut % (Auto) 69.1, Lymph % (Auto) 15.2 L, [place] % (Auto) 11.4 H, Eos % (Auto) 1.1, Baso % (Auto) 1.6 H, Absolute Neuts (auto) 1.3 L, Absolute Lymphs (auto) 0.28 L, Nucleated RBC % 2.2, Diff Path Review September06/23/21 01:40: Sodium 134 L, Potassium 3.3 L, Chloride 107, Carbon Dioxide 19.0 L, Anion Gap 8, BUN 32 H, Creatinine 1.73 H, Estim Creat Clear Calc 22.02, Est GFR (MDRD) Af Amer 36 L, Est GFR (MDRD) Non-Af 30 L, BUN/Creatinine Ratio 18.5, Glucose 101, Calcium 7.6 L, Total Bilirubin 0.20, AST 22, ALT 18, Alkaline Phosphatase 84, Total Protein 8.9 H, Albumin 2.7 L, Globulin 6.2 H, Albumin/Globulin Ratio 0.4 L Micro: Microbiology 06/21/21 00:10 Urine, Random Legionella Antigen - Final 06/21/21 00:10 Urine, Random Streptococcus pneumoniae Antigen (M - Final 06/20/21 23:36 Nasal Secretion SARS-CoV-2 Antigen (Rapid) - Final
[2021-06-23 07:56] LABS: Magnesium 2.4 mg/dL (1.6-2.6)
[2021-06-23] MEDS: 0.9% Saline Lock 10 ML Syringe IV (09:35)
[2021-06-23] MEDS: Enoxaparin 40 MG/0.4 ML Syringe SC (09:36)
[2021-06-23] MEDS: Potassium Chloride Oral Tablet 20 MEQ PO (09:36)
[2021-06-23] MEDS: Furosemide 40 MG/4 ML Vial IV (09:36)
[2021-06-23] MEDS: Potassium Chloride Oral Tablet 20 MEQ 40 MEQ PO (09:36)
[2021-06-23] MEDS: Magnesium Chloride 64 MG Delay Rel.Tablet 128 MG PO (09:37)
[2021-06-23] MEDS: Multivitamins,Therapeutic Tablet 1 TABLET PO (09:37)
[2021-06-23] MEDS: Acyclovir 200 MG Capsule 400 MG PO (09:37)
[2021-06-23] MEDS: Gabapentin 300 MG Capsule PO (09:37)
[2021-06-23 09:45] VITALS: BP 104/63; PULSE 75; RESP 16; TEMP 36.4; O2SAT 97
--- NOTE | 2021-06-23 11:35 | PCM.DC ---
Discharge Instructions Diet Discharge Diet: - (Recommend continued Cardiac diet with low sodium/low fat diet.) Activity Discharge Activity: Return to Normal Activity and - (Use assist devices as needed for stablity and safety.) Weight Bearing Status: Weight bearing as tolerated Keep extremity elevated above heart level: Legs Additional Activity Instructions:: Encourage routine activity in the home. Dressing / Incision Call your doctor if you observe: Fever of 101 or Higher, Inability to urinate, Shortness of breath, Dizziness, Swelling in the ankles, Chest pain, Increased palpitations (irregular heartbeat) and Uncontrolled pain Follow Up Care Test Results: Test results from this visit will be discussed in further detail at your follow-up appointment, if applicable. Discharge Plan Admission Admit Date/Time: 06/21/21 01:03 Primary Reason for Your Visit: Multilobar Pneumonia, Acute Diastolic CHF exacerbation Attending Provider: Purnima Beltrán Primary Care Provider: Fco Casper Instructions Patient Instructions: Heart Failure Signs of Flare-Up, Heart Failure: Tracking Your Weight, Preventing Pneumonia, Healthcare-Associated Pneumonia, Heart Failure: Know Your Baselines, Pneumonia Discharge Orders/Prescriptions Prescriptions: New levofloxacin 750 mg tablet 750 mg PO Q24H Qty: 5 RF: 0 Continued acetaminophen [Tylenol] 325 MG tablet 325 mg PO Q6H RF: 0 acyclovir [Zovirax] 400 MG tablet 400 mg PO BID RF: 0 gabapentin [Neurontin] 300 MG capsule 300 mg PO BID RF: 0 tramadol 50 MG tablet 50 - 100 mg PO Q6H PRN PRN (Reason: Pain) RF: 0 furosemide 40 MG tablet 40 mg PO BID RF: 0 multivitamin Tablet 1 tab PO DAILY RF: 0 calcium carbonate-vitamin D3 600 mg(1,500mg) -200 unit Tablet 1 tab PO QODAY RF: 0 garlic 1,500 mg Capsule 1,500 mg PO DAILY RF: 0 potassium,sodium citrates 50-950 mg Tablet 1 tab PO TID RF: 0 vitamin C-vitamin E Capsule 1 cap PO DAILY RF: 0 fiber Capsule 1 cap PO DAILY RF: 0 magnesium 200 mg Tablet 400 mg PO DAILY RF: 0 docosahexaenoic acid-epa Capsule 1 cap PO DAILY RF: 0 Wander-E 200 mg Tablet 600 mg PO DAILY RF: 0 [id number] 500 mg Capsule 1 cap PO DAILY RF: 0 alpha lipoic acid 300 mg Capsule 300 mg PO DAILY RF: 0 cholecalciferol (vitamin D3) [Vitamin D3] 25 mcg (1,000 unit) Tablet,Chewable 25 mcg PO DAILY RF: 0 Probiotic with Prebiotic 1 billion-250 cell-mg Capsule 1 cap PO DAILY RF: 0 turmeric-turmeric ext-pepper 500-3 mg Capsule 1 cap PO DAILY RF: 0 Ultimate Probiotic-10 111 mg (25 billion cell) Capsule 1 cap PO DAILY RF: 0 vitamin T81-bffno acid 1,000-400 mcg Lozenge 1 candice SUBLINGUAL DAILY RF: 0 fabby root-pyridoxine HCl(B6) 325-25 mg Capsule 1 cap PO DAILY RF: 0 aspirin 81 mg Capsule 81 mg PO QHS RF: 0 Cbd Oil 1 applic transdermal DAILY RF: 0 Referrals / Follow Up: Communications Planner, Primary [Other] (Please follow-up with your primary inspector and sorter within 2-3 days to review admission and assure continued close monitoring of your daily weights. Keep a log and bring them to your visit.) Fco Casper MD [Primary Care Provider] - (Follow-up within 2-3 days to review admission. May see CERTIFIED FIRE INVESTIGATOR/PA. Please have repeat basic metabolic panel and CBC at follow-up.) Abhinav Jose DO [STAFF PHYSICIAN] - (Follow-up with planned visit 06/24/21.) Disposition Disposition (needs filled in before D/C Order can be placed): Home, Self Care
[2021-06-23 11:56] VITALS: O2SAT 94; O2SAT 98
--- NOTE | 2021-06-23 12:10 | CASEMGMT ---
Addendum entered by Miriam Vazquez 06/23/21 15:28: Pt states is now interested in private duty list for aides a couple more days/week. 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 Pt declines need for any skilled therapy at this time. Private duty list provided but pt states also has a call out to someone already. Danyel RHOADES CM Original Note: Per Miriam RHOADES, pt does not qualify for home oxygen at discharge. Pt declined need for HHC but has list, if she decides she needs once home. Danyel RHOADES CM
[2021-06-23 15:04] LABS: M R Staph aureus DNA By PCR Negative (Negative); Probe Check PASS; Specimen Processing Control PASS
--- NOTE | 2021-06-23 17:50 | PCM.DC.SUM ---
Providers Date of Admission: 06/21/21 Primary Care Physician: Dr. Fco Casper MD Reason For Visit: ACUTE ON CHRONIC HEART FAILURE WITH PRESERVED Diagnosis Discharge Diagnosis (1) Heart failure with preserved ejection fraction: Status: Acute Code(s): I50.30 - Unspecified diastolic (congestive) heart failure Qualifiers: Heart failure chronicity: acute on chronic Qualified Code(s): I50.33 - Acute on chronic diastolic (congestive) heart failure (2) Morbid obesity with BMI of 40.0-44.9, adult: Status: Chronic Code(s): E66.01 - Morbid (severe) obesity due to excess calories; Z68.41 - Body mass index [BMI] 40.0-44.9, adult (3) Acute pneumonia: Status: Acute Code(s): J18.9 - Pneumonia, unspecified organism Medications at Discharge Home Medications acetaminophen [Tylenol] 325 mg PO Q6H 06/22/17 acyclovir [Zovirax] 400 mg PO BID 06/22/17 gabapentin [Neurontin] 300 mg PO BID 06/22/17 tramadol 50 - 100 mg PO Q6H PRN PRN 11/14/18 furosemide 40 mg PO BID 08/23/20 Cbd Oil 1 applic TRANSDERMAL DAILY 02/28/21 Probiotic with Prebiotic 1 cap PO DAILY 02/28/21 Wander-E 600 mg PO DAILY 02/28/21 Ultimate Probiotic-10 1 cap PO DAILY 02/28/21 alpha lipoic acid 300 mg PO DAILY 02/28/21 aspirin 81 mg PO QHS 02/28/21 calcium carbonate-vitamin D3 1 tab PO QODAY 02/28/21 cholecalciferol (vitamin D3) [Vitamin D3] 25 mcg PO DAILY 02/28/21 [id number] 1 cap PO DAILY 02/28/21 docosahexaenoic acid-epa 1 cap PO DAILY 02/28/21 fiber 1 cap PO DAILY 02/28/21 garlic 1,500 mg PO DAILY 02/28/21 fabby root-pyridoxine HCl(B6) 1 cap PO DAILY 02/28/21 magnesium 400 mg PO DAILY 02/28/21 multivitamin 1 tab PO DAILY 02/28/21 potassium,sodium citrates 1 tab PO TID 02/28/21 turmeric-turmeric ext-pepper 1 cap PO DAILY 02/28/21 vitamin [id number] acid 1 candice SUBLINGUAL DAILY 02/28/21 vitamin C-vitamin E 1 cap PO DAILY 02/28/21 levofloxacin 750 mg PO Q24H #5 tab 06/23/21 Hospital Course Operations None Procedures 2-D Echocardiogram and EKG Summary of Care Provided Minutes Spent on Discharge: 35 Hospital Course: ATTENDING PHYSICIAN DISCHARGE NOTE: Discharge Diagnoses: #1. Acute on chronic diastolic CHF exacerbation #2. Acute pneumonia, possible gram-positive/gram-negative organism #3. Acute renal insufficiency secondary to iatrogenic Lasix administration on CKD stage IIIb, creatinine increased up to 1.73, recommended repeat outpatient studies. #4. Chronic leukopenia secondary to multiple myeloma with ongoing treatments #5. Chronic anemia/AOCD #6. Multiple myeloma recently initiated on outpatient oral medication #7. Valvular heart disease status post TAVR with bovine replacement #8. Morbid Obesity Discharge Summary: The patient is an 80 y/o F w/ PMHx: Chronic Diastolic CHF, HTN, HLD, Morbid obesity, Multiple Myeloma following w/ Dr. santiago, Valvular Heart disease s/p TAVR, Chronic anemia/AOCD, CKD stage IIIb who presents to the [facility] ED on 06/21/21 w/ increasing shortness of breath starting 2 days prior to presentation with reported outpatient alteration of her Lasix by her oncologist secondary to issues with sodium with worsened orthopnea and paroxysmal nocturnal dyspnea with worsening lower extremity swelling prompting ED evaluation. Patient was admitted to PCU, maintained initially on IV diuresis given concern for exacerbation of her heart failure complicated by pneumonia, BNP of note 1357, chest x-ray with bilateral opacities and congestion, obtained echocardiogram with noted EF 55 to 60%, normal AV bioprosthetic function with ANDREZ 2.0 cm?, mild paravalvular regurgitation, RVSP 39 mmHg, fluid restricted transiently with significant improvement with resolved dyspnea and lower extremity swelling initially complained of. Patient also secondary to pneumonia treated with broad-spectrum antibiotic therapy initially on Zosyn and vancomycin with MRSA screen obtained noted to be negative, de-escalate it off and transition to Levaquin at discharge. Strep Legionella antigens both negative. Covid antigen negative. Patient noted significant improvement and transition to room air without issue, ambulating with improved ability and no continued dyspnea on 06/23/2021. Oxygenation trial performed and patient remained appropriate on room air. Given clinical improvement patient transition to oral Lasix and oral antibiotic therapy with recommended repeat basic metabolic panel at follow-up given her increased level likely secondary recent IV Lasix usage however given patient had improved so much improved for discharge plan follow-up with PCP and cardiology to continue to trend these labs to assure improvement with alteration of her diuretic as needed. Discharge Time: > 35 Minutes DAY OF DISCHARGE PROGRESS NOTE: Subjective: Patient without acute event overnight per self and nursing report. Patient denies fever, chills, nausea, emesis, abdominal pain, chest pain. Patient noted significant improvement since initial presentation, walking the room with ease, not requiring any oxygen. No significant coughing. She notes orthopnea has lessened as well as lower extremity swelling. She is very anxious and wants to be discharged as she has an upcoming oncology visit on Wednesday. Patient agreeable to discharge to home with understanding that she will need to have lab follow-up especially given her recent rise in her creatinine likely secondary to recent ongoing Lasix usage IV. Patient will be discharged with follow-up with primary care physician, oncologist as well as her stemhole borer and topper Objective: T 97.6, heart rate 75, BP 104/63, respiratory rate 16, 97% on room air. Physical Examination: General: awake, alert, oriented x 3 and cooperative, seated upright in the PCU bedside, no acute distress. Skin: normal color, normal turgor, no icterus, no cyanosis. HEENT: AT/NC, EOMI, PERRLA, MMM. Lungs: Mildly diminished, greater bases, no evidence of any respiratory distress, no further rales, no rhonchi or wheezing currently. Heart: Regular rate and rhythm; no gallop, rub audible. Abdomen: soft, morbidly obese, NTTP, no obvious distention, distant normal BS. Extremities: no cyanosis, no clubbing, improved bilateral lower extremity edema. Neurological: patient awake, alert, oriented as noted; cognitive function appears intact upon questioning,; pupils equally reactive to light and accomodation; cranial nerves II-XII grossly normal, moving all 4 extremities, strength improved, mildly global decreased. Psychiatric: affect appears normal, no acute evidence of depressive or anxiety feelings. Assessment and Plan: Please see hospital summary above. Weight / BMI Weight Weight: 239 lb 13.807 oz Body Mass Index (BMI) 41.1 ABG / Lab / Microbiology Data Result Diagrams: 06/23/21 01:40 06/23/21 01:40 Laboratory: Laboratory Results - last 24 hr 06/23/21 01:40: Vancomycin Trough 13.4 06/23/21 01:40: WBC 1.8 L, RBC 3.30 L, Hgb 10.7 L, Hct 32.9 L, MCV 99.7 H, MCH 32.4 H, MCHC 32.5, RDW Std Deviation 58.4 H, RDW Coeff of Liz 15.9 H, Plt Count 154, MPV 10.2, Immature Gran % (Auto) 1.600 H, Neut % (Auto) 69.1, Lymph % (Auto) 15.2 L, [place] % (Auto) 11.4 H, Eos % (Auto) 1.1, Baso % (Auto) 1.6 H, Absolute Neuts (auto) 1.3 L, Absolute Lymphs (auto) 0.28 L, Nucleated RBC % 2.2, Diff Path Review September06/23/21 01:40: Sodium 134 L, Potassium 3.3 L, Chloride 107, Carbon Dioxide 19.0 L, Anion Gap 8, BUN 32 H, Creatinine 1.73 H, Estim Creat Clear Calc 22.02, Est GFR (MDRD) Af Amer 36 L, Est GFR (MDRD) Non-Af 30 L, BUN/Creatinine Ratio 18.5, Glucose 101, Calcium 7.6 L, Total Bilirubin 0.20, AST 22, ALT 18, Alkaline Phosphatase 84, Total Protein 8.9 H, Albumin 2.7 L, Globulin 6.2 H, Albumin/Globulin Ratio 0.4 L 06/23/21 01:40: Magnesium 2.4 06/23/21 09:25: MRSA (PCR) Negative Microbiology: Microbiology 06/21/21 00:52 Blood Culture (Wb) - Port Blood Culture - Preliminary No growth in 48 hours. 06/20/21 23:36 Blood Culture (Wb) - Port Blood Culture - Preliminary No growth in 48 hours. 06/21/21 00:10 Urine, Random Legionella Antigen - Final 06/21/21 00:10 Urine, Random Streptococcus pneumoniae Antigen (M - Final 06/20/21 23:36 Nasal Secretion SARS-CoV-2 Antigen (Rapid) - Final D/C Instructions Discharge Diet: - (Recommend continued Cardiac diet with low sodium/low fat diet.) Weight Bearing Status: Weight bearing as tolerated Keep extremity elevated above heart level: Legs Additional Activity Instructions: Encourage routine activity in the home. Call your doctor if you observe: Fever of 101 or Higher, Inability to urinate, Shortness of breath, Dizziness, Swelling in the ankles, Chest pain, Increased palpitations (irregular heartbeat) and Uncontrolled pain Meaningful Use Info Meaningful Use Diagnoses (Choose all that apply): CHF CHF TERESO/ARB ordered at discharge?: No Reason TERESO/ARB not ordered?: Hypotension and Worsening renal dysfunctn Documented LVEF (%): 60 Discharge Plan Admission Admit Date/Time: 06/21/21 01:03 Primary Reason for Your Visit: Multilobar Pneumonia, Acute Diastolic CHF exacerbation Attending Provider: Purnima Beltrán Primary Care Provider: Fco Casper Instructions Patient Instructions: Heart Failure Signs of Flare-Up, Heart Failure: Tracking Your Weight, Preventing Pneumonia, Healthcare-Associated Pneumonia, Heart Failure: Know Your Baselines, Pneumonia Discharge Orders/Prescriptions Prescriptions: New levofloxacin 750 mg tablet 750 mg PO Q24H Qty: 5 RF: 0 Continued acetaminophen [Tylenol] 325 MG tablet 325 mg PO Q6H RF: 0 acyclovir [Zovirax] 400 MG tablet 400 mg PO BID RF: 0 gabapentin [Neurontin] 300 MG capsule 300 mg PO BID RF: 0 tramadol 50 MG tablet 50 - 100 mg PO Q6H PRN PRN (Reason: Pain) RF: 0 furosemide 40 MG tablet 40 mg PO BID RF: 0 multivitamin Tablet 1 tab PO DAILY RF: 0 calcium carbonate-vitamin D3 600 mg(1,500mg) -200 unit Tablet 1 tab PO QODAY RF: 0 garlic 1,500 mg Capsule 1,500 mg PO DAILY RF: 0 potassium,sodium citrates 50-950 mg Tablet 1 tab PO TID RF: 0 vitamin C-vitamin E Capsule 1 cap PO DAILY RF: 0 fiber Capsule 1 cap PO DAILY RF: 0 magnesium 200 mg Tablet 400 mg PO DAILY RF: 0 docosahexaenoic acid-epa Capsule 1 cap PO DAILY RF: 0 Wander-E 200 mg Tablet 600 mg PO DAILY RF: 0 [id number] 500 mg Capsule 1 cap PO DAILY RF: 0 alpha lipoic acid 300 mg Capsule 300 mg PO DAILY RF: 0 cholecalciferol (vitamin D3) [Vitamin D3] 25 mcg (1,000 unit) Tablet,Chewable 25 mcg PO DAILY RF: 0 Probiotic with Prebiotic 1 billion-250 cell-mg Capsule 1 cap PO DAILY RF: 0 turmeric-turmeric ext-pepper 500-3 mg Capsule 1 cap PO DAILY RF: 0 Ultimate Probiotic-10 111 mg (25 billion cell) Capsule 1 cap PO DAILY RF: 0 vitamin P54-usagq acid 1,000-400 mcg Lozenge 1 candice SUBLINGUAL DAILY RF: 0 fabby root-pyridoxine HCl(B6) 325-25 mg Capsule 1 cap PO DAILY RF: 0 aspirin 81 mg Capsule 81 mg PO QHS RF: 0 Cbd Oil 1 applic transdermal DAILY RF: 0 Referrals / Follow Up: [employer], Primary [Other] (Please follow-up with your primary stemhole borer and topper within 2-3 days to review admission and assure continued close monitoring of your daily weights. Keep a log and bring them to your visit.) Fco Casper MD [Primary Care Provider] - 06/30/21 2:20 pm (Follow-up within 2-3 days to review admission. May see [employer]ITY ARCHITECT/PA. Please have repeat basic metabolic panel and CBC at follow-up.) Abhinav Santiago DO [STAFF PHYSICIAN] - 06/24/21 (Follow-up with planned visit 06/24/21.) Disposition Disposition (needs filled in before D/C Order can be placed): Home, Self Care Charges/Coding Visit Charges Inpatient E&M: 14057 Disch Hosp
[2021-06-24 10:07] LABS: Pathologist Review Reviewed
[2021-06-24 10:07] LABS: Pathologist Review Reviewed
[2021-06-24 10:17] LABS: Pathologist Review Reviewed
[2021-06-24 10:19] LABS: Pathologist Review Reviewed
== END 2021-06-23 15:52 | disposition home or self-care (01) | DRG 291 ==
LOC: ED 23:16 → PCU 06-21 01:28
PROVIDERS: Internal Medicine; Admitting Provider Hospitalist; Emergency Provider Emergency Medicine; PCP Family Medicine; Visit Provider Family Medicine
DX: I13.0 Hypertensive heart and chronic kidney disease with heart failure and stage 1 through stage 4 chronic kidney disease, or unspecified chronic kidney disease (principal); I50.33 Acute on chronic diastolic (congestive) heart failure; J15.8 Pneumonia due to other specified bacteria; D84.9 Immunodeficiency, unspecified; C90.00 Multiple myeloma not having achieved remission; Z68.41 Body mass index [BMI] 40.0-44.9, adult; D63.1 Anemia in chronic kidney disease; E83.51 Hypocalcemia; E86.1 Hypovolemia; E66.01 Morbid (severe) obesity due to excess calories; N18.32 Chronic kidney disease, stage 3b; E78.5 Hyperlipidemia, unspecified; D63.0 Anemia in neoplastic disease; T45.1X5A Adverse effect of antineoplastic and immunosuppressive drugs, initial encounter; Z87.891 Personal history of nicotine dependence; R06.01 Orthopnea
CPT/HCPCS: 36415; 36591; 71045; 80048; 80053; 80202; 81001; 83605; 83735; 83880; 84145; 84484; 85025; 87040; 87426; 87449; 87641; 93005; 93306; 97802; 99251; 99285; J7040; Q9957; A4216; C8929; G0463; J0696; J1940

== ENCOUNTER → 2022-09-10 | Outpatient (CLI) | payer MEDICARE, OTHER, SELFPAY ==
[2022-09-10 14:32] LABS: ALB/GLOB Ratio 0.8 RATIO (0.9-2.4); AST(SGOT) 15 U/L (15-37); Alanine Aminotransfer ALT/SGPT 27 U/L (13-56); Albumin, Serum 3.5 g/dL (3.2-5.0); Alkaline Phosphatase 116 U/L (45-117); Anion Gap 7 (5-15); BUN 36 mg/dL (7-18); BUN/Creat Ratio 24.7 RATIO (10-20); Calcium,Total 9.8 mg/dL (8.5-10.1); Chloride 105 mmol/L (98-107); Creatinine, Serum 1.46 mg/dL (0.55-1.02); EST Glomerular Filtration Rate 36 mL/min (>60); Est Glom Filt Rate - Afr Amer 44 mL/min (>60); Globulin 4.6 g/dL (2.2-4.2); Glucose 104 mg/dL (74-106); Potassium 3.9 mmol/L (3.5-5.1); Protein, Total 8.1 g/dL (6.4-8.2); Sodium Level 139 mmol/L (136-145)
== END | disposition home or self-care (01) ==
LOC: LABSPEC 13:27
PROVIDERS: PCP Family Medicine; Referring Provider Internal Medicine Hematology & Oncology; Visit Provider Internal Medicine Hematology & Oncology
DX: C90.00 Multiple myeloma not having achieved remission (principal); C90.10 Plasma cell leukemia not having achieved remission
CPT/HCPCS: 80053